=== PATIENT | female | born 2000 | race Caucasian/White ===

== ENCOUNTER → 2020-06-10 13:48 | Outpatient (CLI) | payer OTHER, SELFPAY ==
[2020-06-10 14:02] LABS: Chloride 104 mmol/L (98-107); Potassium 4.2 mmoL/L (3.5-5.1); Sodium 140 mmol/L (136-145)
[2020-06-10 14:04] LABS: Alanine Aminotransferase 18 U/L (12-78); Aspartate Amino Transferase 30 U/L (14-36); Blood Urea Nitrogen 17 mg/dl (7-17); Estimated Glomerular Filt Rate 78 ml/min (>60); GFR (African American) 95 ML/MIN (>60)
[2020-06-10 14:05] LABS: Albumin Level 4.9 g/dl (3.5-5.0); Albumin/Globulin Ratio 1.5 (1.1-1.8); Alkaline Phosphatase 65 U/L (38-126); Anion Gap 15.2 mEq/L (5-15); Bilirubin,Total 0.6 mg/dl (0.2-1.3); Calcium 10.2 mg/dl (8.4-10.2); Carbon Dioxide 25 mmol/L (22.0-30.0); Cholesterol 227 mg/dl (140-200); Globulin 3.2 g/dL (1.3-3.2); Glucose 97 mg/dl (74-100); Total Protein,Serum 8.1 g/dl (6.3-8.2); Triglycerides 239 mg/dl (30-150); VLDL Cholesterol 48 mg/dL (0-40)
[2020-06-10 14:06] LABS: Chol/HDL Ratio 3.4 (1-3.5); HDL Cholesterol 67 mg/dl (40-60)
[2020-06-10 14:16] LABS: Direct LDL Cholesterol 107.64 mg/dL (100-129)
[2020-06-10 14:21] LABS: Free T4 (Free Thyroxine) 0.86 ng/dl (0.78-2.19)
[2020-06-10 14:25] LABS: Basophils # 0.1 K/mm3 (0-0.2); Basophils % 0.4 % (0.1-2.0); Eosinophils # 0.1 K/mm3 (0.0-0.4); Eosinophils % 0.4 % (0.1-12.0); Hematocrit 41.9 % (37.0-47.0); Hemoglobin 14.8 g/dL (12.2-16.2); Lymphocytes # 3.1 K/mm3 (0.7-4.5); Lymphocytes % 25.1 % (10-50); Mean Corpuscular HGB Conc 35.2 g/dL (31.8-35.4); Mean Corpuscular Hemoglobin 31.8 pg (27.0-31.2); Mean Corpuscular Volume 90.5 fl (81-99); Monocytes # 0.5 K/mm3 (0.1-1.0); Monocytes % 3.9 % (1.7-9.3); Neutrophils # 8.6 K/mm3 (1.8-7.8); Neutrophils % 70.2 % (37.0-80.0); Platelet Count 349 K/mm3 (142-424); Red Blood Count 4.63 M/mm3 (4.20-5.40); Red Cell Distribution Width 13.3 % (11.5-17.5); White Blood Count 12.2 K/mm3 (4.8-10.8)
[2020-06-10 14:36] LABS: Thyroid Stimulating Hormone 2.19 uIU/mL (0.465-4.68)
[2020-06-10 15:14] LABS: 25-OH Vitamin D, Total 54.8 ng/mL (30-100)
[2020-06-10 15:50] LABS: Vitamin B12 367 pg/mL (239-931)
== END ==
PROVIDERS: Visit Provider Emergency Medicine
DX: R53.83 Other fatigue (principal); E55.9 Vitamin D deficiency, unspecified
CPT/HCPCS: 80053; 80061; 82306; 82607; 84439; 84443; 85025

== ENCOUNTER 2020-09-28 13:29 | Emergency (ER) | payer OTHER, SELFPAY ==
[2020-09-28 14:56] VITALS: BP 121/77; PULSE 83; RESP 16; TEMP 36.4; O2SAT 100; BMI 29.2
--- NOTE | 2020-09-28 15:15 | HMH.EDUTC ---
[place] Disposition Clinical Impression: Viral syndrome, Exposure to COVID-19 virus Disposition: Home, Self-Care Condition on Discharge: Good Instructions: Preventing the Spread of Coronavirus Discharge Instructions Additional Instructions: Drink plenty of fluids. Take tylenol for pain or fever. Return if you begin to have difficulty breathing. Follow up with your regular doctor. GO TO THE ER FOR ANY WORSENING SYMPTOMS Prescriptions: Promethazine HCl [Phenergan 25mg tab] 25 mg PO Q6H PRN #20 tab PRN Reason: Nausea And Vomiting Transmission Status: Received by [id number] Referrals: Maxi Davalos MD [Primary Care Provider] - Forms: Work/School Release Time of Disposition: 15:44 Medical Decision Making - Medical Records Medical records reviewed: No: I reviewed the patient's medical records. - Mark Inquiry Pt receiving controlled substance: No Vital Signs: 09/28/20 14:56 09/28/20 15:27 09/28/20 15:45 Temperature 97.6 F 97.9 F 98.5 F Temperature Source Tympanic Oral Pulse Rate 81 70 Pulse Rate [Right] 83 Respiratory Rate 16 16 14 Blood Pressure 126/82 122/69 Blood Pressure [Right Arm] 121/77 Blood Pressure Mean [Right Arm] 91 Blood Pressure Source Automatic Cuff Blood Pressure Source [Right Arm] Automatic Cuff Blood Pressure Position Sitting Blood Pressure Position [Right Arm] Sitting 02 Sat by Pulse Oximetry 100 Oxygen Delivery Method Room Air [place] HPI - General Stated complaint: covid symtoms Time Seen by Provider: 09/28/20 15:15 Mode of Arrival: Ambulatory Source of Information: Patient Limitations: No Limitations Description of Symptoms (Recalled from Triage Doc. by RN): pt states she has had a migraine, cough, fatigue, puking, stomach cramps. pt is 7-8weeks . HEENT Symptoms (Recalled from RN notes): Yes (migraine) Resp Symptoms (Recalled from RN notes): Yes (cough) Skin Symptoms (Recalled from RN notes): No MS Symptoms (Recalled from RN notes): No Functional Status (Recalled from RN notes): na - History of Present Illness Provider Complaint: She states that for the past 3 days she has been having a cough, sinus drainage, and gi upset. She is 8 weeks . She has an appt with her club former on Monday (2 days from now). - Related Data Previous Rx's Medication Instructions Recorded quetiapine 50 mg tablet 50 mg PO QHS #30 tab 04/28/20 lisinopril 5 mg tablet 5 mg PO DAILY #90 tab 06/10/20 bupropion HCl 150 mg 24 hr tablet, 150 mg PO DAILY #30 tab 07/27/20 extended release pantoprazole 40 mg tablet,delayed 40 mg PO DAILY #90 tab 08/05/20 release Promethazine HCl [Phenergan 25mg 25 mg PO Q6H PRN #20 tab 09/28/20 tab] Allergies Allergy/AdvReac Type Severity Reaction Status Date / Time azithromycin [From ZITHROMAX] Allergy Mild Verified 09/28/20 14:21 - Worker's Comp Is this a Worker's Comp case?: No [facility] History - Hepatitis A Screen Drug use history?: No High risk sexual behaviors?: No History of sexually transmitted infection?: No Currently employed?: No Childcare worker?: No Do you have indoor plumbing?: Yes Do you have electricity?: Yes Attestation statement:: This patient has been screened for Hepatitis A risk factors. I have reviewed the patient's past medical history: Yes Medical History: Reports:: Anxiety, Gastroesophageal Reflux Disease(GERD) Comment: HEMORROIDS Other Surgeries: Yes: No Previous Surgery, EGD Amputation: No Fractures: No - Social History Smoking Status: Never smoker Alcohol Intake: never Alcohol Intake Frequency:: a few times a week Substance Use Type: denies use, marijuana Occupational Status: employed Housing: house Household Members: family - Psychiatric History Pschychiatric History:: Reports:: Anxiety Family Hx:: No significant family history ROS Obtained: Yes All systems reviewed & no additional complaints - Constitutional Constitutional: Report
[2020-09-28 15:27] VITALS: BP 126/82; PULSE 81; RESP 16; TEMP 36.6
[2020-09-28 15:45] VITALS: BP 122/69; PULSE 70; RESP 14; TEMP 36.9
== END 2020-09-28 15:48 | disposition home or self-care (01) ==
PROVIDERS: Emergency Provider Nurse Practitioner Family; PCP Emergency Medicine
DX: Z20.822 Contact with and (suspected) exposure to COVID-19 (principal); B34.9 Viral infection, unspecified; F41.9 Anxiety disorder, unspecified; Z3A.08 8 weeks gestation of pregnancy; K21.9 Gastro-esophageal reflux disease without esophagitis
CPT/HCPCS: 99202; G0463; U0003

== ENCOUNTER 2020-11-19 09:14 | Emergency (ER) | payer OTHER, SELFPAY ==
[2020-11-19 09:16] VITALS: BP 142/80; PULSE 86; RESP 16; TEMP 36.8; O2SAT 98; BMI 28.5
[2020-11-19 09:28] LABS: Apearance,Urine Clear (Clear); Color,Urine Yellow (Yellow); PH,Urine 5.5 (5.0-8.5)
[2020-11-19 09:29] LABS: Bilirubin,Urine Negative (Negative); Blood, Urine 4+ (Negative); Glucose,Urine (UA) Negative (Negative); Ketones,Urine Negative (Negative); Protein,Urine Negative (Negative); UTC Leukocyte Esterase,Urine 1+ (Negative); UTC Nitrate,Urine Positive (Negative); Urobilinogen,Urine 0.2 EU/dl (0.2)
--- NOTE | 2020-11-19 09:41 | HMH.EDUTC ---
[facility] [place] Clinical Impression: UTI (urinary tract infection) Qualifiers: Urinary tract infection type: site unspecified Hematuria presence: with hematuria Qualified Code(s): N39.0 - Urinary tract infection, site not specified Disposition: Home, Self-Care Condition on Discharge: Good Instructions: Urinary Tract Infection, DI for Urinary Tract Infection (UTI), Phenazopyridine Additional Instructions: Drink plenty of fluids. Take tylenol or ibuprofen for pain or fever. Take the medications as directed. Follow up with your regular doctor. GO TO THE ER FOR ANY WORSENING SYMPTOMS The pyridium will make your urine turn orange, this is an expected side effect. It will stain your clothes if it comes into contact with them. Prescriptions: Sulfamethoxazole/Trimethoprim [Bactrim DS tablet] 1 each PO BID 7 Days #14 tab Transmission Status: Received by [facility] Phenazopyridine HCl [Pyridium 200mg Tablet] 200 pow PO TID #6 tab Transmission Status: Received by [facility] Referrals: Maxi Davalos MD [Primary Care Provider] - Forms: Work/School Release Time of Disposition: 09:42 Medical Decision Making - Medical Records Medical records reviewed: No: I reviewed the patient's medical records. - Mark Inquiry Pt receiving controlled substance: No Vital Signs: 11/19/20 09:16 11/19/20 09:44 Temperature 98.3 F 98 F Temperature Source Oral Oral Pulse Rate 65 Pulse Rate [Right] 86 Respiratory Rate 16 16 Blood Pressure 132/70 Blood Pressure [Right Arm] 142/80 H Blood Pressure Mean [Right Arm] 100 Blood Pressure Source Automatic Cuff Blood Pressure Source [Right Arm] Automatic Cuff Blood Pressure Position Sitting Blood Pressure Position [Right Arm] Sitting 02 Sat by Pulse Oximetry 98 Oxygen Delivery Method Room Air Room Air - Lab Data Lab results reviewed: Yes: I reviewed the patient's lab results. Lab Results 11/19/20 09:27: Urine Color Yellow, Urine Appearance Clear, Urine pH 5.5, Ur Specific [place] 1.020, Urine Protein Negative, Urine Glucose (UA) Negative, Urine Ketones Negative, Urine Blood 4+, Urine Nitrate Positive A, Urine Bilirubin Negative, Urine Urobilinogen 0.2, Ur Leukocyte Esterase 1+ A Orders (Tests/Meds): ORDERS Category Date Time Status Urine Culture Stat Micro 11/19/20 09:30 Received [facility] [place] - General Stated complaint: possible uti Time Seen by Provider: 11/19/20 09:20 Mode of Arrival: Ambulatory Source of Information: Patient Limitations: No Limitations Description of Symptoms (Recalled from Triage Doc. by RN): pt c/o UTI symptoms, frequency, and some pain HEENT Symptoms (Recalled from RN notes): No Resp Symptoms (Recalled from RN notes): No Skin Symptoms (Recalled from RN notes): No MS Symptoms (Recalled from RN notes): No Functional Status (Recalled from RN notes): na - History of Present Illness Provider Complaint: She c/o low back pain, urinary frequency, and dysuria for the past 2 days. - Related Data Previous Rx's Medication Instructions Recorded quetiapine 50 mg tablet 50 mg PO QHS #30 tab 04/28/20 bupropion HCl 150 mg 24 hr tablet, 150 mg PO DAILY #30 tab 11/05/20 extended release lisinopril 5 mg tablet See Rx Instructions .ROUTE 11/06/20 .COMPLEX #90 tab pantoprazole 40 mg tablet,delayed See Rx Instructions .ROUTE 11/06/20 release .COMPLEX #90 tab hydrocortisone 2.5 % topical cream 1 applic [place] BID #30 g 11/13/20 with perineal applicator Phenazopyridine HCl [Pyridium 200 pow PO TID #6 tab 11/19/20 200mg Tablet] Sulfamethoxazole/Trimethoprim 1 each PO BID 7 Days #14 tab 11/19/20 [Bactrim DS tablet] Allergies Allergy/AdvReac Type Severity Reaction Status Date / Time azithromycin [From ZITHROMAX] Allergy Mild Verified 11/13/20 14:12 - Worker's Comp Is this a Worker's Comp case?: No [facility] History - Hepatitis A Screen Drug use history?: No High risk sexual behaviors
[2020-11-19 09:44] VITALS: BP 132/70; PULSE 65; RESP 16; TEMP 36.6; O2SAT 98
== END 2020-11-19 09:45 | disposition home or self-care (01) ==
PROVIDERS: Emergency Provider Nurse Practitioner Family; PCP Emergency Medicine
DX: N30.00 Acute cystitis without hematuria (principal); K21.9 Gastro-esophageal reflux disease without esophagitis; F41.9 Anxiety disorder, unspecified; Z79.899 Other long term (current) drug therapy
CPT/HCPCS: 81003; 87086; 87088; 87186; 99202; G0463

== ENCOUNTER 2021-02-08 09:06 | Emergency (ER) | payer OTHER, SELFPAY ==
[2021-02-08 09:10] VITALS: BP 147/93; PULSE 89; RESP 19; TEMP 36.8; O2SAT 100; BMI 26.2
--- NOTE | 2021-02-08 10:06 | HMH.EDUTC ---
[facility] [place] Dis[place] Clinical Impression: Vertigo Disposition: Home, Self-Care Condition on Discharge: Good Instructions: Vertigo, DI for Vertigo, Meclizine Additional Instructions: Take medication as prescribed Follow up with your Family Doctor in the next 48 hours as advised for further evaluation Return if needed Straight to ER if any life threatening symptoms or loss of consciousness Prescriptions: Meclizine HCl [Antivert 12.5mg tablet] 12.5 mg PO TID PRN #15 tab PRN Reason: Dizziness Transmission Status: Received by [id number] Fluticasone Propionate [Flonase 50mcg nasal spray 16gm] 1 spr NS DAILY #1 bottle Transmission Status: Received by [id number] Referrals: Maxi Davalos MD [Primary Care Provider] - As needed Forms: Work/School Release Time of Disposition: 10:12 Medical Decision Making - Mark Inquiry Pt receiving controlled substance: No Mark was queried for this patient: No Vital Signs: 02/08/21 09:10 02/08/21 10:18 Temperature 98.2 F 98.2 F Temperature Source Oral Pulse Rate 89 Pulse Rate [Right Brachial] 89 Respiratory Rate 19 19 Blood Pressure 147/93 H Blood Pressure [Right Arm] 147/93 H Blood Pressure Mean [Right Arm] 111 Blood Pressure Source [Right Arm] Automatic Cuff Blood Pressure Position [Right Arm] Sitting 02 Sat by Pulse Oximetry 100 Oxygen Delivery Method Room Air - Lab Data Lab Results 02/08/21 10:18: [facility] Negative Medical Decision Narrative: Discussed with patient and recommended transfer to the ED for further work up and evaluation due to fainting yesterday and patient refused states that she will start medication for dizziness and if no improvement will follow up with her Family Doctor on Mon or return to ED if symptoms continue or do not improve Patient aware of risks and still declined transfer State that she feels fine right now [facility] [place] HPI - General Stated complaint: dizzines, fainted 02/07 Time Seen by Provider: 02/08/21 10:06 Mode of Arrival: Ambulatory Source of Information: Patient Limitations: No Limitations Description of Symptoms (Recalled from Triage Doc. by RN): PATIENT C/O DIZZINESS SINCE LAST MONDAY AND STATES SHE FAINTED ONCE. HEENT Symptoms (Recalled from RN notes): Yes Resp Symptoms (Recalled from RN notes): No Skin Symptoms (Recalled from RN notes): No MS Symptoms (Recalled from RN notes): No Functional Status (Recalled from RN notes): WNL - History of Present Illness Provider Complaint: Patient states that about a week and half ago she had some ringing in her right ear and feeling of fullness State that for the last week she has been having dizzy spells on and off State that she has had them multiple times in the past and yesterday she thinks she may have fainted States that she has done that in the past also State that she has continued to have feeling of fullness in her ears and dizziness on and off when she moves or turns States that she feels like the room is spinning around her States that she seen PCP on Mon and they changed her blood pressure medication but she had been having dizziness prior to that - Related Data Home Medications Medication Instructions Recorded Confirmed Losartan Potassium [Cozaar 25mg 25 mg PO DAILY 02/08/21 02/08/21 Tablets] Pantoprazole Sodium 40 mg PO DAILY 02/08/21 02/08/21 Previous Rx's Medication Instructions Recorded bupropion HCl 150 mg 24 hr tablet, 150 mg PO DAILY #90 tab 02/03/21 extended release Fluticasone Propionate [Flonase 1 spr NS DAILY #1 bottle 02/08/21 50mcg nasal spray 16gm] Meclizine HCl [Antivert 12.5mg 12.5 mg PO TID PRN #15 tab 02/08/21 tablet] Allergies Allergy/AdvReac Type Severity Reaction Status Date / Time azithromycin [From ZITHROMAX] Allergy Mild Verified 02/03/21 13:03 lisinopril AdvReac Mild cough Verified 02/03/21 13:28 - Worker's Comp Is this a Worker's Comp case?: No H History - H
[2021-02-08 10:18] VITALS: BP 147/93; PULSE 89; RESP 19; TEMP 36.8; O2SAT 100
[2021-02-08 10:37] LABS: UTC Pregnancy Test, Urine Negative (Negative)
== END 2021-02-08 10:36 | disposition home or self-care (01) ==
PROVIDERS: Emergency Provider Nurse Practitioner; PCP Emergency Medicine
DX: R42 Dizziness and giddiness (principal); K21.9 Gastro-esophageal reflux disease without esophagitis; F41.8 Other specified anxiety disorders; I10 Essential (primary) hypertension; F17.290 Nicotine dependence, other tobacco product, uncomplicated; Z79.899 Other long term (current) drug therapy
CPT/HCPCS: 81025; 99202; G0463

== ENCOUNTER 2021-02-27 13:51 | Emergency (ER) | payer OTHER, SELFPAY ==
[2021-02-27 14:00] VITALS: BP 132/91; PULSE 88; RESP 21; TEMP 36.6; O2SAT 99; BMI 28.3
--- NOTE | 2021-02-27 14:29 | HMH.EDUTC ---
[facility] [place] Clinical Impression: UTI (urinary tract infection) Qualifiers: Urinary tract infection type: acute cystitis Hematuria presence: with hematuria Qualified Code(s): N30.01 - Acute cystitis with hematuria Disposition: Home, Self-Care Condition on Discharge: Good Instructions: Urinary Tract Infection Additional Instructions: Increase fluids, water and not soda or tea. Can drink cranberry juice or cranberry extract. White front to back Wear cotton underwear Empty bladder after intercourse Start antibiotics immediately and make sure you take the full course although you may start to see improvement over the next 48 hours. You can eat yogurt or take probiotics to decrease diarrhea or yeast infection caused by the antibiotic Be sure to follow-up anytime for new or worsening symptoms in 48 hours for wound urine culture results be sure to let you PCP no recent urine for culture so they can request records and ensure that you have appropriate antibiotic if you are not getting better or getting worse. If symptoms worsen or do not improve return or be seen in the ER. Follow-up with primary care this week. Prescriptions: cephALEXin [Cephalexin 500mg Tab] 500 mg PO BID 7 Days #14 tab Transmission Status: Received by [id number] Referrals: Maxi Davalos MD [Primary Care Provider] - Time of Disposition: 14:48 Medical Decision Making - Mark Inquiry Pt receiving controlled substance: No Vital Signs: 02/27/21 14:00 Temperature 97.9 F Temperature Source Oral Pulse Rate [Right Brachial] 88 Respiratory Rate 21 Blood Pressure [Right Arm] 132/91 H Blood Pressure Mean [Right Arm] 104 Blood Pressure Source [Right Arm] Manual Cuff/ Palpation Blood Pressure Position [Right Arm] Sitting 02 Sat by Pulse Oximetry 99 Oxygen Delivery Method Room Air - Lab Data Lab Results 02/27/21 14:02: Urine HCG, Qual Negative 02/27/21 14:06: Urine Color Yellow, Urine Appearance Clear, Urine pH 5.5, Ur Specific [place] 1.020, Urine Protein Negative, Urine Glucose (UA) Negative, Urine Ketones Negative, Urine Blood 3+, Urine Nitrate Negative, Urine Bilirubin Negative, Urine Urobilinogen 0.2, Ur Leukocyte Esterase Trace Orders (Tests/Meds): ORDERS Category Date Time Status Urine Culture Stat Micro 02/27/21 14:04 Received [facility] [place] - General Chief complaint: Urgent Treatment Center Stated complaint: urinary problems Time Seen by Provider: 02/27/21 14:29 Mode of Arrival: Ambulatory Source of Information: Patient Limitations: No Limitations Description of Symptoms (Recalled from Triage Doc. by RN): PATIENT C/O POSSIBLE UTI HEENT Symptoms (Recalled from RN notes): No Resp Symptoms (Recalled from RN notes): No Skin Symptoms (Recalled from RN notes): No MS Symptoms (Recalled from RN notes): No Functional Status (Recalled from RN notes): WNL - History of Present Illness Provider Complaint: 20 yr old female presnets for burning,freq,urgency and pain with urination for 3 days. - Related Data Home Medications Medication Instructions Recorded Confirmed Losartan Potassium [Cozaar 25mg 25 mg PO DAILY 02/08/21 02/08/21 Tablets] Pantoprazole Sodium 40 mg PO DAILY 02/08/21 02/08/21 Previous Rx's Medication Instructions Recorded bupropion HCl 150 mg 24 hr tablet, 150 mg PO DAILY #90 tab 02/03/21 extended release Fluticasone Propionate [Flonase 1 spr NS DAILY #1 bottle 02/08/21 50mcg nasal spray 16gm] Meclizine HCl [Antivert 12.5mg 12.5 mg PO TID PRN #15 tab 02/08/21 tablet] cephALEXin [Cephalexin 500mg Tab] 500 mg PO BID 7 Days #14 tab 02/27/21 Allergies Allergy/AdvReac Type Severity Reaction Status Date / Time azithromycin [From ZITHROMAX] Allergy Mild Verified 02/03/21 13:03 lisinopril AdvReac Mild cough Verified 02/03/21 13:28 - Worker's Comp Is this a Worker's Comp case?: No [facility] History - Hepatitis A Screen Drug use history?: No High risk sexual behaviors?: No Histor
[2021-02-27 14:41] LABS: Urine Pregnancy, HCG Qual. Negative (Negative)
[2021-02-27 14:44] LABS: Apearance,Urine Clear (Clear); Color,Urine Yellow (Yellow); PH,Urine 5.5 (5.0-8.5)
[2021-02-27 14:45] LABS: Bilirubin,Urine Negative (Negative); Blood, Urine 3+ (Negative); Glucose,Urine (UA) Negative (Negative); Ketones,Urine Negative (Negative); Protein,Urine Negative (Negative); UTC Leukocyte Esterase,Urine Trace (Negative); UTC Nitrate,Urine Negative (Negative); Urobilinogen,Urine 0.2 EU/dl (0.2)
[2021-02-27 14:50] VITALS: BP 132/91; PULSE 88; RESP 21; TEMP 36.6; O2SAT 99
== END 2021-02-27 14:53 | disposition home or self-care (01) ==
PROVIDERS: Emergency Provider Nurse Practitioner Family; PCP Emergency Medicine
DX: N30.01 Acute cystitis with hematuria (principal); F41.8 Other specified anxiety disorders; I10 Essential (primary) hypertension
CPT/HCPCS: 81003; 81025; 87086; 87088; 87186; 99202; G0463

== ENCOUNTER 2021-12-28 22:06 | Emergency (ER) | payer OTHER, SELFPAY ==
[2021-12-29 00:12] VITALS: BP 00/00; PULSE 0; RESP 0; TEMP -17.7; TEMP 0
== END 2021-12-29 00:14 | disposition left against medical advice (07) ==
PROVIDERS: Emergency Provider Emergency Medicine; PCP Emergency Medicine
DX: Z53.21 Procedure and treatment not carried out due to patient leaving prior to being seen by health care provider (principal)
CPT/HCPCS: 99211

== ENCOUNTER 2022-03-30 10:04 | Emergency (ER) | payer OTHER, SELFPAY ==
[2022-03-30 11:10] VITALS: BP 141/90; PULSE 77; RESP 19; TEMP 36.7; O2SAT 99; BMI 32.3
--- NOTE | 2022-03-30 11:36 | HMH.EDUTC ---
[facility] [place] Impression: Sinusitis Qualifiers: Sinusitis location: unspecified location Chronicity: unspecified Qualified Code(s): J32.9 - Chronic sinusitis, unspecified Disposition: Home, Self-Care Condition on Discharge: Good Instructions: Sinusitis, DI for Sinusitis, DI for COVID-19 (Suspected or Confirmed ), Preventing the Spread of Coronavirus Discharge Instructions Additional Instructions: *Monitor Temp, Over the counter Motrin or Tylenol as directed/as needed Tylenol every 4 hours and Motrin every 6 hours (as long as your family doctor has told you that you can take it) for fever or pain. and straight to ER if unable to lower temp less than 101.0 after medication given *Warm salt water gargles may help to soothe the throat *Throat Lozenges *Warm fluids like tea with honey may help to soothe the throat *Sleep elevated *Humidifier/Vaporizer Follow up IMMEDIATELY for new or worsening symptoms or no Noticeable improvement over the next 48-72 hours. 911 for difficulty breathing or swallowing You were tested for today for COVID19 your test result should be back in the next 24-48 hours, you may check your result on the [facility] Portal Make sure to take your Vitamins Vit. C Vit D and Zinc if you can take them Prescriptions: Amoxicillin/Potassium Clav [Amox-Clav 875-125 mg Tablet] 1 tab PO BID #14 tab Transmission Status: [facility] methylPREDNISolone [Medrol 4mg tab] 4 mg PO DIRECTED #21 tab Transmission Status: Pending to [facility] Referrals: Maxi Davalos MD [Primary Care Provider] - As needed Forms: Work/School Release Time of Disposition: 11:46 Medical Decision Making - Mark Inquiry Pt receiving controlled substance: No Mark was queried for this patient: No Vital Signs: 03/30/22 11:10 Temperature 98.0 F Temperature Source Oral Pulse Rate [Right Brachial] 77 Respiratory Rate 19 Blood Pressure [Right Arm] 141/90 H Blood Pressure Mean [Right Arm] 107 Blood Pressure Source [Right Arm] Automatic Cuff Blood Pressure Position [Right Arm] Sitting 02 Sat by Pulse Oximetry 99 Oxygen Delivery Method Room Air Orders (Tests/Meds): ORDERS Category Date Time Status Covid-19 Nasal PCR ([facility]) Routine Lab 03/30/22 11:10 Received Medical Decision Narrative: Patient denies states just got off period yesterday [facility] [place] HPI - General Stated complaint: cough, congestion Time Seen by Provider: 03/30/22 11:36 Mode of Arrival: Ambulatory Source of Information: Patient Limitations: No Limitations Description of Symptoms (Recalled from Triage Doc. by RN): PATIENT C/O COUGH, CONGESTION, SINUS PRESSURE AND BODY ACHES X 4 DAYS HEENT Symptoms (Recalled from RN notes): Yes Resp Symptoms (Recalled from RN notes): Yes Skin Symptoms (Recalled from RN notes): No MS Symptoms (Recalled from RN notes): No Functional Status (Recalled from RN notes): WNL - History of Present Illness Provider Complaint: Patient states that she hasnt felt well for about a week States that for the last 4 days she has been having sinus pain and pressure pressure like feeling behind her eyes, body aches and headache Denies known exposure to COVID - Related Data Home Medications Medication Instructions Recorded Confirmed Losartan Potassium [Cozaar 25mg 25 mg PO DAILY 02/08/21 02/23/22 Tablets] Pantoprazole Sodium 40 mg PO DAILY 02/08/21 02/23/22 Previous Rx's Medication Instructions Recorded bupropion HCl 150 mg 24 hr tablet, 150 mg PO DAILY #90 tab 02/03/21 extended release Fluticasone Propionate [Flonase 1 spr NS DAILY #1 bottle 02/08/21 50mcg nasal spray 16gm] Meclizine HCl [Antivert 12.5mg 12.5 mg PO TID PRN #15 tab 02/08/21 tablet] methylprednisolone 4 mg tablets in See Rx Instructions PO PER PKG DIR 02/23/22 a dose pack #21 tab phentermine 37.5 mg tablet 37.5 mg PO DAILY #30 tab 02/23/22 Amoxicillin/Potassium Clav 1 tab PO BID #14 tab
[2022-03-30 11:51] VITALS: BP 141/90; PULSE 77; RESP 19; TEMP 36.7; O2SAT 99
== END 2022-03-30 11:55 | disposition home or self-care (01) ==
PROVIDERS: Emergency Provider Nurse Practitioner; PCP Emergency Medicine
DX: J32.9 Chronic sinusitis, unspecified (principal)
CPT/HCPCS: 99212; C9803; G0463; U0003; U0005

== ENCOUNTER 2022-11-07 10:36 | Outpatient (RCR) | payer OTHER, SELFPAY ==
--- NOTE | 2022-11-07 11:23 | HMH.OTOPEV ---
OT Inpatient Evaluation Rehab OT Outpatient Eval Start: 11/07/22 11:05 Freq: Status: Active Protocol: Document 11/07/22 11:05 PABLITO (Rec: 11/07/22 11:20 PABLITO [id number]) E-signed By Bekah Wagner, OT Outpatient Therapy Subjective History Subjective History Pt is a 22-year old female who reports to OT today for initial evaluation due to pain and weakness in R wrist. Pt reports that she has been experiencing pain and weakness in the R wrist ~ few months now. She reports that she has often drops objects due to weakness in R wrist. 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 She reports that she is writes with her L hand, but is R hand dominant for every other task . Pt reports that her mother and grandmother have experienced CTS in the past. Pt reports that she is a mother of two, and complains of pain and weakness while holding the baby without the support from her arms. Pt would benefit from skilled OT to address pain and weakness in R wrist that are inhibiting overall occupational performance in daily tasks. Chief Complaint Pain Symptom Type Ache,Sharp Symptoms Relieved By Nothing Prior Functional Limitations None Current Functional Limitations Lifting Symptom Description Constant but Variable Level of pain today (0-10) 0 Pain scale - at its best (0-10) 0 Pain scale - at its worst (0-10) 9 Wrist/Hand Eval Wrist Range of Motion Right Wrist Limitations of Range of Motion Muscle Weakness,Pain Wrist Extension Active Range of Motion ( 68 degrees) Wrist Flexion Active Range of Motion ( 80 degrees) Wrist Radial Deviation Active Range of 32 Motion (degrees) Wrist Ulnar Deviation Active Range of 26 Motion (degrees) Wrist Manual Muscle Testing Right Wrist Extension Strength Grade 4- Good- Wrist Flexion Strength Grade
== END 2022-11-07 11:47 | disposition home or self-care (01) ==
LOC: OT 10:36
PROVIDERS: PCP Emergency Medicine; Visit Provider Student in an Organized Health Care Education/Training Program
DX: M25.531 Pain in right wrist (principal)
CPT/HCPCS: 97166

== ENCOUNTER → 2023-05-04 23:39 | Outpatient (CLI) | payer OTHER, SELFPAY ==
[2023-05-04 18:10] LABS: Adenovirus,PCR Not Detected (NotDetected); Bordetella Pertussis Not Detected (NotDetected); Chlamydophila Pneumoniae, PCR Not Detected (NotDetected); Coronavirus 19, PCR Not Detected (NotDetected); Coronavirus 229E Not Detected (NotDetected); Coronavirus NL63 Not Detected (NotDetected); Coronavirus OC43 Not Detected (NotDetected); Coronovirus HKU1,PCR Not Detected (NotDetected); Human Metapneumovirus Not Detected (NotDetected); Influenza A, PCR Not Detected (NotDetected); Influenza AH1, 2009 Not Detected (NotDetected); Influenza AH1, PCR Not Detected (NotDetected); Influenza AH3,PCR Not Detected (NotDetected); Influenza B, PCR Not Detected (NotDetected); Mycoplasma Pneumoniae, PCR Not Detected (NotDetected); Parainfluenza 1, PCR Not Detected (NotDetected); Parainfluenza 3, PCR Not Detected (NotDetected); Parainfluenza 4, PCR Not Detected (NotDetected); Respiratory Syncytial Virus Not Detected (NotDetected)
[2023-05-05 05:59] LABS: Parainfluenza 2, PCR Detected (NotDetected); Rhinovirus/Enterovirus Detected (NotDetected)
== END ==
PROVIDERS: PCP Emergency Medicine; Visit Provider Student in an Organized Health Care Education/Training Program
DX: J02.9 Acute pharyngitis, unspecified (principal); J10.1 Influenza due to other identified influenza virus with other respiratory manifestations; B34.1 Enterovirus infection, unspecified
CPT/HCPCS: 87070; 87581; 87632; 87798

== ENCOUNTER → 2023-05-16 23:20 | Outpatient (CLI) | payer OTHER, SELFPAY ==
[2023-05-16 18:10] LABS: Basophils % 0.4 % (0.1-2.0); Eosinophils # 0.1 K/mm3 (0.0-0.4); Eosinophils % 1.7 % (0.1-12.0); Hemoglobin 13.7 g/dL (12.2-16.2); Lymphocytes # 1.9 K/mm3 (0.7-4.5); Lymphocytes % 28.2 % (10-50); Mean Corpuscular HGB Conc 31.9 g/dL (31.8-35.4); Mean Corpuscular Hemoglobin 29.3 pg (27.0-31.2); Mean Corpuscular Volume 91.8 fl (81-99); Mean Platelet Volume 9.7 fl (7.4-10.4); Monocytes # 0.5 K/mm3 (0.1-1.0); Monocytes % 7.8 % (1.7-9.3); Neutrophils # 4.2 K/mm3 (1.8-7.8); Neutrophils % 61.9 % (37.0-80.0); Platelet Count 336 K/mm3 (142-424); Red Blood Count 4.69 M/mm3 (4.20-5.40); Red Cell Distribution Width 13.1 % (11.5-17.5); White Blood Count 6.7 K/mm3 (4.8-10.8)
[2023-05-16 18:37] LABS: Alanine Aminotransferase 18 U/L (12-78); Albumin Level 4.1 g/dl (3.5-5.0); Albumin/Globulin Ratio 1.5 (1.1-1.8); Alkaline Phosphatase 50 U/L (38-126); Anion Gap 15.2 mEq/L (5-15); Aspartate Amino Transferase 28 U/L (14-36); Bilirubin,Total 0.4 mg/dl (0.2-1.3); Blood Urea Nitrogen 10 mg/dl (7-17); Calcium 8.8 mg/dl (8.4-10.2); Carbon Dioxide 22 mmol/L (22.0-30.0); Chloride 108 mmol/L (98-107); Estimated Glomerular Filt Rate 102 ml/min (>60); GFR (African American) 123 ML/MIN (>60); Globulin 2.7 g/dL (1.3-3.2); Glucose 94 mg/dl (74-100); Potassium 4.2 mmoL/L (3.5-5.1); Sodium 141 mmol/L (136-145); Total Protein,Serum 6.8 g/dl (6.3-8.2)
== END ==
LOC: LAB.DROPOF 23:21
PROVIDERS: PCP Emergency Medicine; Visit Provider Internal Medicine
DX: R10.9 Unspecified abdominal pain (principal)
CPT/HCPCS: 80053; 85025

== ENCOUNTER → 2023-05-17 08:07 | Outpatient (CLI) | payer OTHER, SELFPAY ==
[2023-05-17 08:19] LABS: Adenovirus F 40/41, stool Not Detected (NotDetected); Astrovirus Not Detected (NotDetected); Campylobacter Not Detected (NotDetected); Clostridium Difficile A/B, PCR Not Detected (NotDetected); Cryptosporidium Not Detected (NotDetected); Cyclospora Cayetanesis Not Detected (NotDetected); Entamoeba histolytica Not Detected (NotDetected); Enteroaggregative E coli Not Detected (NotDetected); Enteropathogenic E coli Not Detected (NotDetected); Enterotoxigenic E coli Not Detected (NotDetected); Giardia lamblia Not Detected (NotDetected); Plesimonas Shigalloides, PCR Not Detected (NotDetected); Rotavirus A Not Detected (NotDetected); Salmonella, PCR Not Detected (NotDetected); Sapovirus Not Detected (NotDetected); Shiga-like toxin E coli Not Detected (NotDetected); Shigella Enterovasive E coli Not Detected (NotDetected); Vibrio Cholerae Not Detected (NotDetected); Vibrio, PCR Not Detected (NotDetected); Yersinia Entercolitica, PCR Not Detected (NotDetected)
[2023-05-17 19:07] LABS: Norovirus Detected (NotDetected)
== END ==
PROVIDERS: PCP Emergency Medicine; Visit Provider Internal Medicine
DX: R19.7 Diarrhea, unspecified (principal); A08.11 Acute gastroenteropathy due to Norwalk agent
CPT/HCPCS: 87507

== ENCOUNTER → 2023-07-21 07:52 | Outpatient (CLI) | payer OTHER, SELFPAY ==
--- NOTE | 2023-07-21 07:52 | US_ITS ---
FINAL REPORT CLINICAL HISTORY: RUQ pain COMPARISON: None FINDINGS: Sonographic images of the right upper quadrant were obtained. The pancreas is partially obscured.The liver has an unremarkable appearance.The gallbladder appears normal without evidence of gallstones.There is no evidence of biliary ductal dilatation.The common duct measures 2.4 mm. Limited images of the right kidney are unremarkable. IMPRESSION: Unremarkable right upper quadrant ultrasound. Reviewed, Interpreted and Dictated by Anthony Borja MD Transcribed by Leti Shirley Authenticated and [facility]
== END ==
PROVIDERS: PCP Physician Assistant; Visit Provider Physician Assistant
DX: R10.11 Right upper quadrant pain (principal)
CPT/HCPCS: 76705

== ENCOUNTER 2023-08-25 08:32 | Outpatient (CLI) | payer OTHER, SELFPAY ==
[2023-08-25 09:51] LABS: Free T4 (Free Thyroxine) 0.76 ng/dl (0.78-2.19)
[2023-08-25 10:06] LABS: Thyroid Stimulating Hormone 2.22 uIU/mL (0.465-4.68)
[2023-08-26 14:35] LABS: Triiodothyronine (T3) Total 107 ng/dL (71-180)
[2023-08-29 12:12] LABS: Pancreatic Elastase, Fecal 166 (>200)
== END 2023-08-25 23:59 ==
LOC: LAB 08:34
PROVIDERS: PCP Physician Assistant; Visit Provider Nurse Practitioner Family
DX: R10.84 Generalized abdominal pain (principal); R11.2 Nausea with vomiting, unspecified; R14.0 Abdominal distension (gaseous); K30 Functional dyspepsia; K58.9 Irritable bowel syndrome, unspecified; K21.9 Gastro-esophageal reflux disease without esophagitis
CPT/HCPCS: 36415; 82656; 84439; 84443; 84480

== ENCOUNTER 2023-09-06 10:18 | Outpatient (CLI) | payer OTHER, SELFPAY ==
--- NOTE | 2023-09-06 10:18 | NM_ITS ---
FINAL REPORT CLINICAL HISTORY: RUQ pain 10:30AM 8.78 MCI TC CHOLETEC 1.5 MCG CCK NO PAIN WITH CCK COMPARISON: None FINDINGS: Sequential anterior projection images of the abdomen were obtained after the intravenous injection of 8.78 mCi technetium 99m Choletec. There is normal uptake of radiotracer by the liver. The gallbladder and bile ducts are visualized by 5 minutes. Bowel activity is noted by 15 minutes. After 1 hour, 1.5 ?g of CCK was injected intravenously for calculation of gallbladder ejection fraction. The gallbladder ejection fraction is 20%, which is abnormally low but nonspecific. IMPRESSION: No evidence of cystic duct or bile duct obstruction. Abnormally low but nonspecific gallbladder ejection fraction of 20%. Reviewed, Interpreted and Dictated by Kael Castillo III, MD Transcribed by Felicity Ziegler Authenticated and [facility]
[2023-09-06] MEDS: ISOTOPE CHOLETECH;1 DOSE (UP TO 15 MCI) IV (12:22)
[2023-09-06] MEDS: SODIUM CHLORIDE 0.9% 10ML SYR (RAD ONLY) 10 ML IV (12:22)
[2023-09-06] MEDS: SINCALIDE 1.5 MCG in 0.9 % SODIUM CHLORIDE 50 ML 100 MCG IV (12:22)
== END 2023-09-06 23:59 ==
LOC: RAD 10:18
PROVIDERS: PCP Physician Assistant; Visit Provider Physician Assistant
DX: R10.11 Right upper quadrant pain (principal)
CPT/HCPCS: 78227; A9537; J2805

== ENCOUNTER 2024-04-11 11:58 | Outpatient (CLI) | payer OTHER, SELFPAY ==
[2024-04-11 18:02] LABS: Coronavirus 19, PCR Not Detected (NotDetected); Influenza A, PCR Not Detected (NotDetected); Influenza B, PCR Not Detected (NotDetected)
== END 2024-04-11 23:59 | disposition home or self-care (01) ==
LOC: LAB.DROPOF 04-12 11:58
PROVIDERS: PCP Student in an Organized Health Care Education/Training Program; Visit Provider Student in an Organized Health Care Education/Training Program
DX: R50.9 Fever, unspecified (principal); R09.81 Nasal congestion
CPT/HCPCS: 87636

== ENCOUNTER 2024-07-31 10:46 | Outpatient (CLI) | payer OTHER, SELFPAY | END 2024-07-31 23:59 | disposition home or self-care (01) | LOC: LAB.DROPOF 08-01 08:50 | PROVIDERS: PCP Nurse Practitioner Family; Visit Provider Nurse Practitioner Family | DX: J02.0 Streptococcal pharyngitis (principal) | CPT/HCPCS: 87070 ==

== ENCOUNTER 2024-08-07 11:28 | Outpatient (CLI) | payer OTHER, SELFPAY ==
[2024-08-07 18:12] LABS: Adenovirus,PCR Not Detected (NotDetected); Bordetella Pertussis Not Detected (NotDetected); Chlamydophila Pneumoniae, PCR Not Detected (NotDetected); Coronavirus 229E Not Detected (NotDetected); Coronavirus NL63 Not Detected (NotDetected); Coronavirus OC43 Not Detected (NotDetected); Coronovirus HKU1,PCR Not Detected (NotDetected); Human Metapneumovirus Not Detected (NotDetected); Influenza A, PCR Not Detected (NotDetected); Influenza AH1, 2009 Not Detected (NotDetected); Influenza AH1, PCR Not Detected (NotDetected); Influenza AH3,PCR Not Detected (NotDetected); Influenza B, PCR Not Detected (NotDetected); Mycoplasma Pneumoniae, PCR Not Detected (NotDetected); Parainfluenza 1, PCR Not Detected (NotDetected); Parainfluenza 2, PCR Not Detected (NotDetected); Parainfluenza 3, PCR Not Detected (NotDetected); Parainfluenza 4, PCR Not Detected (NotDetected); Respiratory Syncytial Virus Not Detected (NotDetected); Rhinovirus/Enterovirus Not Detected (NotDetected)
[2024-08-07 22:56] LABS: Coronavirus 19, PCR Detected (NotDetected)
== END 2024-08-07 23:59 | disposition home or self-care (01) ==
LOC: LAB.DROPOF 08-08 10:11
PROVIDERS: PCP Family Medicine; Visit Provider Family Medicine
DX: R09.81 Nasal congestion (principal); U07.1 COVID-19
CPT/HCPCS: 87633

== ENCOUNTER 2025-06-26 07:41 | Emergency (ER) | payer OTHER, SELFPAY ==
[2025-06-26] VITALS (28 sets, daily range): BP systolic 111–154; BP diastolic 68–108; PULSE 56–108; RESP 20; TEMP 36.8–37; O2SAT 95–100; BMI 34.0
--- OUTSIDE RECORDS SUMMARY | 2025-06-26 07:50 | XMS_ITS | Continuity of Care Document ---
Author Organization [facility], [facility] Address [address] [place] [address] Assessment No assessment recorded. Plan of Treatment Reminders Order Date Submit Date Provider Last Modified By Organization Details Last Modified Time Details Appointments None recorded . Lab None recorded . Referral None recorded . Procedures None recorded . Surgeries None recorded . Imaging None recorded . Medication Orders Adipex-P 37.5 mg tablet 025 06/17/20 25 [id number], [address], [id number], 13:29:07 Patient TargetsNo targets recorded. Patient InstructionsNo instructions recorded. Reason for Referral None Reported. Problems Name Problem SNOMED Code Status Onset Date Resolution Date Notes Provider Name and Address Organization Details Recorded Time Gastroesoph ageal reflux disease without esophagitis 824929774 Active 2024 GONZALEZ Romero [address] [place] [address], [id number] 8, [employer] 13:40:34 Anxiety 39985294 Active 2024 GONZALEZ Romero [address] [place] [address], [id number] 8, [employer] 14:59:04 Obese class II 9033280890226 05 Active 2024 GONZALEZ Romero [address] [place] [address], [phone] 8, [employer] 10:43:27 Problem Notes None recorded. Procedures Surgical History Date Name Laterality Status Provider Name and Address Organization Details Recorded Time 5 Tubal Ligation completed [employer] 12/20/2024 13:12:45 4 Date of Last Pap Smear completed [employer] 12/20/2024 13:12:44 Imaging Results None recorded. Procedure Notes None recorded. Medical Equipment None Reported. Allergies Allergen ID Allergen Name Allergen Category Reaction Reaction Severity Criticality Documentation Date Start Date Code Code System Note Provider Name and Address Organization Details Recorded Time 18079 Zithromax medicatio n itching nausea rash vomiting Not available Not available Not available Not available Not available 12/20/20242015 [address] [facility] [employer] 5 13:12:43 Medications Name Sig Start Date Stop Date Status Note LastModified by Organization Details LastModified Time amoxicillin 500 mg capsule TAKE 1 CAPSULE BY MOUTH TWICE DAILY FOR 10 DAYS 12/05 completed Not Available Not Available Not Available acetaminoph en 325 mg tablet TAKE 2 TABLETS BY MOUTH EVERY 6 HOURS NEEDED FOR MILD PAIN ON A PAIN SCALE OF 1-3 12/05 completed Not Available Not Available Not Available ibuprofen 800 mg tablet TAKE 1 TABLET BY MOUTH ONCE EVERY 8 HOURS DO NOT EXCEED 3 TABLETS A DAY 12/05 completed Not Available Not Available Not Available Adipex-P 37.5 mg tablet Take 1 tablet every day by oral route for 30 days. 2024 active Not Available Not Available Not Avai lable ondansetron HCl 4 mg tablet TAKE 1 TABLET BY MOUTH EVERY 6 HOURS NEEDED FOR NAUSEA OR VOMITING 12/05 completed Not Available Not Available Not Available pantoprazol e 40 mg tablet,teddy yed release TAKE 1 TABLET BY MOUTH EVERY DAY active Not Available Not Available No t Available docusate sodium 100 mg capsule TAKE 2 CAPSULES BY MOUTH EVERY 12 HOURS NEEDED FOR CONSTIPAT ION 12/05 completed Not Available Not Available Not Available ibuprofen 600 mg tablet TAKE 1 TABLET BY MOUTH EVERY 6 HOURS NEEDED FOR MILD PAIN ON A PAIN SCALE OF 1-3 12/05 completed Not Available Not Available Not Available ondansetron 4 mg disintegrat ing tablet DISSOLVE 1 TABLET ON THE TONGUE EVERY 4 TO 6 HOURS 12/05 completed Not Available Not Available Not Available sertraline 50 mg tablet TAKE 1 TABLET BY MOUTH EVERY DAY active Not Available Not Available No t Available oxycodone 5 mg tablet TAKE 1 TABLET BY MOUTH EVERY 6 HOURS NEEDED FOR MODERATE PAIN 12/05 completed Not Available Not Available Not Available lidocaine 2 % mucosal jelly in applicator APPLY 1 APPLICATI ON TOPICALLY TO AFFECTED AREA NEEDED FOR MILD PAIN 12/05 completed Not Available Not Available Not Available 28 mg iron-800 mcg tablet TAKE 1 TABLET BY MOUTH 1 TIME EACH DAY active Not Available Not Available No t Available Creon 36,000 unit-114,00 0 unit-180,00 0 unit capsule,del ayed release TAKE 1 CAPSULE BY MOUTH THREE TIMES DAILY WITH MEALS active Not Available Not Available No t Available BinaxNOW COVID-19 Ag Self Test kit TEST DIRECTED TODAY 05/09 completed Not Available Not Available Not Available Vitals Date Recorded Body height Body mass index (BMI) Body weight Oxygen saturation Oxygen saturation in Arterial blood by Pulse oximetry Heart rate Body temperature Systolic And Diastolic Provider Name and Address Organization Details Last Updated DateTime 154.94 cm 34.2 kg/m2 20422.5 g 98 % 98 % 90 /min 98.2 [degF] 120/84 mm[Hg] Emilia Thompson [employer] 13:18:56 Social History Question Answer Notes LastModified by Organizat ion Details LastModified Time Tobacco Smoking Status Never Smoker Emilia Thompson [facility] [employer] 12/20/2024 13:19:12 Do You Have An Advance Directive? No Information not available 12/20/2024 Is Your Home Air Conditioned? Yes Information not available 12/20/2024 If You Are , What Was Your Level Of Alcohol Consumption Prior To ? None Information not available 12/20/2024 How Many Years Have You Consumed Alcohol? 8 Information not available 12/20/2024 Do You Wear A Helmet When Biking? No Information not available 12/20/2024 Are You Blind Or Do You Have Difficulty Seeing? No Information not available 12/20/2024 What Is Your Level Of Caffeine Consumption? Occasional Information not available 12/20/2024 Are You A Caregiver? 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 [employer]care[employer] Information not available 12/20/2024 Have You Been To An Area Known To Be High Risk For COVID-19? No Information not available 12/20/2024 Are You Deaf Or Do You Have Serious Difficulty Hearing? No Information not available 12/20/2024 What Type Of Diet Are You Following? REGULAR Information not available 12/20/2024 What Is The Highest Grade Or Level Of School You Have Completed Or The Highest Degree You Have Received? [id number] Information not available 12/20/2024 Who Is Your Employer? [employer] Information not available 12/20/2024 How Many Days Of Moderate To Strenuous Exercise, Like A Brisk Walk, Did You Do In The Last 7 Days? 3 Information not available 12/20/2024 On Those Days That You Engage In Moderate To Strenuous Exercise, How Many Minutes, On Average, Do You Exercise? 30 Information not available 06/17/2025 Have There Been Any Changes To Your Family Or Social Situation? No Information not available 12/20/2024 Are There Any Guns Present In Your Home? Yes Information not available 12/20/2024 Which Of Your Hands Is Dominant? Bilateral Information not available 12/20/2024 Do You Engage In Moderate/heavy Exercise (e.g. Brisk Walk, Jogging, Strength Training, Etc)? Yes Information not available 06/17/2025 What Is Your Home Situation? Both Parents Information not available 12/20/2024 How Many Times In The Past Year Have You Used An Illegal Drug Or Used A Prescription Medication For Nonmedical Reasons? 0 Information not available 06/17/2025 Where Do You Live? Apartment Information not available 06/17/2025 Do You Have A Medical Power Of Treasury Management Sales Consultant? No Information not available 12/20/2024 What Was The Date Of Your Most Recent Tobacco Screening? 06/17/2025 Information not available 06/17/2025 Are There Any Occupational Health Risks Where You Work? Biological, Chemical Information not available 12/20/2024 What Is Your Current Pack Years? 10packyears Information not available 12/20/2024 Have You Ever Been Counseled For Unhealthy Alcohol Use? No Information not available 06/17/2025 Do You Have Any Pets? Yes Information not available 12/20/2024 Do You Use Protection During Sex? No Information not available 12/20/2024 What Is Your Relationship Status? Domestic Partner Information not available 12/20/2024 Have You Repeated Any Grades? No Information not available 12/20/2024 Do You Wear A Seatbelt When Driving Or As A Passenger? Yes Information not available 06/17/2025 Do You Use Your Seat Belt Or Car Seat Routinely? Yes Information not available 12/20/2024 Are You Sexually Active? Yes Information not available 12/20/2024 Do You Have Any Siblings? 2 Information not available 12/20/2024 Do You Have Smoke And Carbon Monoxide Detectors In Your Home? Yes Information not available 12/20/2024 At What Age Did You Start Smoking Tobacco? 18 Information not available 12/20/2024 Are You Passively Exposed To Smoke? Yes Information not available 12/20/2024 Are There Any Smokers In Your House? Yes Information not available 12/20/2024 How Much Tobacco Do You Smoke? No Information not available 12/20/2024 Do You Participate In Social Media? Yes Information not available 12/20/2024 What Types Of Sporting Activities Do You Participate In? Hiking, Kayaking, Pickle Ball Information not available 06/17/2025 Do You Use Sunscreen Routinely? No Information not available 12/20/2024 Has Tobacco Cessation Counseling Been Provided? Yes Information not available 12/20/2024 On What Date Was Tobacco Cessation Counseling Provided? 06/17/2025 Information not available 06/17/2025 How Many Years Have You Smoked Tobacco? 6 Information not available 12/20/2024 Have You Recently Traveled Abroad? No Information not available 12/20/2024 Do You Have Difficulty Walking Or Climbing Stairs? No Information not available 12/20/2024 Are You Currently In School? No Information not available 12/20/2024 What Contraceptive Method Was Reported At Start Of This Visit? Female Sterilization Information not available 12/20/2024 Do You Feel Safe In Your Home? Yes Information not available 06/17/2025 Do You Have Any Dietary Restrictions? No Information not available 12/20/2024 How Many Days In The Past Year Have You Consumed 4 Or More Drinks? 10 Information not available 12/20/2024 Sex: Unknown Functional Status Question Answer Note LastModified by Organizat ion Details LastModified Time How many times per week do you consume alcohol? 1-2 times per week Information not available 06/17/2025 Do you or have you ever used smokeless tobacco? Never used smokeless tobacco Information not available 12/20/2024 Are you currently employed? Yes Information not available 12/20/2024 Do you have transportation difficulties? No Information not available 12/20/2024 Are you able to care for yourself independently? Yes Information not available 12/20/2024 Do you have difficulty dressing, bathing, grooming, or toileting? No Information not available 12/20/2024 Do you or have you ever used e-cigarettes or vape? Current user of electronic cigarettes Information not available 12/20/2024 What is your exercise level? Occasional Information not available 12/20/2024 Do you use any illicit or recreational drugs? No Information not available 12/20/2024 Do you feel safe in your relationship? Yes Information not available 06/17/2025 Do you or have you ever used any other forms of tobacco or nicotine? Yes Information not available 12/20/2024 What is your level of alcohol consumption? Occasional Information not available 12/20/2024 Are you able to walk independently without assistance or assistive devices? YESWOREST Information not available 12/20/2024 Do you have difficulty doing errands alone? No Information not available 12/20/2024 Mental Status Question Answer Note LastModified by Organizat ion Details LastModified Time Do you feel stressed (tense, restless, nervous, or anxious, or unable to sleep at night)? [id number] Information not available 06/17/2025 Do you have difficulty concentrating, remembering or making decisions? No Information no t available 12/20/2024 Are you or have you been involved with bullying? No Information not available 12/20/2024 Family History Relationship Description Onset Age of this Age Resolved Age Notes LastModified by Organization Details LastModified Time Mother Hypertensive disorder Not available 2024 13:18:31 Medical History Condition Response Allergies (Food, seasonal, environmental ) Y Emergency room visit since last appointm ent. N Depression Y Anxiety Disorder Y Acid Reflux (GERD) Y Hospitalizations N GI Problems Y Gynecological History Statement/Question Response Abnormal Pap N Flow Moderate Date of LMP 05/19/2025 On BCP's at Conception? N STIs/STDs N HPV Vaccine Y Duration of Flow (days) 7 Most Recent Mammogram Age at Menarche 10 Current Control Method Tubal Ligat ion Age at First Child 17 Frequency of Cycle (Q days) 30 Menses Monthly Y Date of Last Pap Smear 12/14/2023 LMP Approximate Obstetrics History GPAL:G 3 P 3 0 0 3 Type Value Multiple Births 0 Full Term 3 Induced 0 Spontaneous 0 Premature 0 Living 3 Ectopics 0 Total 3 Immunizations Vaccine Type Date Status Note Provider Nam e and Address Organization Details Recorded Time Hep B, adolescent or pediatric 8 completed [facility] 06/17/2025 13:11:29 IPV 8 completed Not Available [facility] 06/17/2025 13:11:29 Hib-Hep B 8 completed Not Available [facility] 06/17/2025 13:11:29 DTaP, unspecified formulation 8 completed Not Available [facility] 06/17/2025 13:11:29 DTaP, unspecified formulation 8 completed Not Available [facility] 06/17/2025 13:11:29 IPV 8 completed Not Available [facility] 06/17/2025 13:11:29 Hib, unspecified formulation 8 completed [facility] 06/[facility]25 13:11:29 DTaP, unspecified formulation 9 completed Not Available [facility] 06/17/2025 13:11:29 OPV, trivalent 9 completed Not Available [facility] 06/17/2025 13:11:29 varicella 9 completed Not Available [facility] 06/17/2025 13:11:29 Hib-Hep B 9 completed Not Available [facility] 06/17/2025 13:11:29 DTaP, unspecified formulation 9 completed Not Available [facility] 06/17/2025 13:11:29 MMR 9 completed Not Available [facility] 06/17/2025 13:11:29 DTaP, unspecified formulation 3 completed Not Available [facility] 06/17/2025 13:11:29 MMR 3 completed Not Available [facility] 06/17/2025 13:11:29 IPV 3 completed Not Available [facility] 06/17/2025 13:11:29 Tdap 9 completed Not Available [facility] 06/17/2025 13:11:29 Influenza, split virus, quadrivalent, preservative 7 completed Not Available [facility] 06/17/2025 13:11:29 Tdap 2 completed Not Available [facility] 06/17/2025 13:11:29 Influenza, split virus, trivalent, PF 4 completed Not Available [facility] 06/17/2025 13:11:29 [facility]ap 4 completed [facility] 06/17/[facility]25 13:11:29 RSV, bivalent, protein subunit RSVpreF, diluent reconstituted, 0.5 mL, PF 4 completed Not Available [facility] 06/17/2025 13:11:29 Past Encounters Encounter ID Performer Location Encounter Start Date Encounter Closed Date Diagnosis/Indication Diagnosis SNOMED-CT Code Diagnosis ICD10 Code Diagnosis IMO Codes Diagnosis Note [id number] [place] Stone, [place] [facility] [address] [place] [address] 06/17/2025 13:07:34 06/17/2025 13:39:04 Body mass index 30+ - obesity 478324237 Z68.35 Anxiety 43349125 F41.9 24620 Improving with sertraline Health Concerns Section Related Observation LastModified by Organization [employer]eta[employer] ls LastModified Time None Recorded Concern Status LastModified by Organization Details LastModified Time None Recorded Payers Encounter Date Sequence Insurance Name Policy Number Policy Joy Covered Member ID Joy Member ID Guarantor Name 06/17/2025 1 [facility] Giulia Booth [id number] Giulia Booth Notes Date Note Type Note Provider Name and Address Organization Details Recorded Time 06/17/2025 text/html ROS as noted in the HPI Patient presents for followupHas lost 5 pounds with AdipexStates anxiety is better with sertraline. Trying to do better about remembering to take it daily. GONZALEZ Romero [address] [place] [address], [place], [address], [facility] [employer] 06/17/2025 13:36:46 OBGyn Episode No OBEpisode recorded.
--- OUTSIDE RECORDS SUMMARY | 2025-06-26 07:51 | XMS_ITS | Continuity of Care Document ---
Author Organization [place] - [employer] [facility] Address [address] [place] [address] Assessment No assessment recorded. Plan of Treatment Reminders Order Date Submit Date Provider Last Modified By Organization Details Last Modified Time Details Appointments None recorded. Lab unlisted lab - toxassure flex 19, [id number] 2024 025 AXTELL [facility], [address] [place] [address], [place], [address], 5 08:14:08 Referral None recorded. Procedures None recorded. Surgeries None recorded. Imaging None recorded. Medication Orders sertraline 50 mg tablet 2024 025 [facility][id number], [address], [id number], 5 15:02:27 Adipex-P 37.5 mg tablet 2024 025 AXTELL [employer] [employer] #[id number], [address], [id number], 5 15:02:21 Patient TargetsNo targets recorded. Patient Instructions Encounter Date Encounter Id Patient Instructions Last Modified By Organization Details Last Modified Time 05/09/2025 [id number] body mass index: care instructions [email or web address] Not available 05/09/2025 15:02:11 learning about healthy weight [email or web address] Not available 05/09/2025 15:02:11 Reason for Referral None Reported. Results Created Date Observation Date Name Description Value Unit Range Abnormal Flag Note LastModifiedBy Organization Detail LastModifiedTime 05/09/2005/15/2025 TOXAS SURE FLEX 19, UR summary report FINAL ===== ===== ===== ===== ===== ===== ===== ===== ===== ===== ===== ===== ===== === Brie ol Bioma rkers , [place], Ur RFX ToxAs sure Flex 19, Ur ===== ===== ===== ===== ===== ===== ===== ===== ===== ===== ===== ===== ===== === Test Resul t Flag Units Drug Prese nt Ethyl Glucu ronid e 737 ng/mg creat Ethyl Sulfa te 336 ng/mg creat EtG and EtS are metab olite s of ethyl alcoh ol; EtG may be a ferme ntati on produ ct of gluco se, but EtS is not known to be forme d by ferme ntati on. Incid ental expos ure to alcoh ol may resul t in detec table level s of EtG and/o r EtS. EtG/E tS resul ts shoul d be inter prete d in the hayes xt of all avail able clini maya and behav ioral infor matio n. ===== ===== ===== ===== ===== ===== ===== ===== ===== ===== ===== ===== ===== === Test Resul t Flag Units Ref Range Creat inine 95 mg/dL >=20 ===== ===== ===== ===== ===== ===== ===== ===== ===== ===== ===== ===== ===== === Decla red Medic ation s: Medic ation list was not provi ded. ===== ===== ===== ===== ===== ===== ===== ===== ===== ===== ===== ===== ===== === For clini maya consu ltati on, pleas e call . ===== ===== ===== ===== ===== ===== ===== ===== ===== ===== ===== ===== ===== === Not Available [facility] ([facility]) [address] [place], [address], 05/15/2025 08:14:08 05/09/2005/15/2025 TOXAS SURE FLEX 19, UR pdf . Not Available [facility] ([facility]) [address] [place], [address], 05/15/2025 08:14:08 05/09/2005/15/2025 TOXAS SURE FLEX 19, UR creatinine 95 mg/dL >=20 REFER ENCE RANGE : Ref Range >=20 Not Available [facility] ([facility]) [address] [place], [address], 05/15/2025 08:14:08 05/09/2005/15/2025 TOXAS SURE FLEX 19, UR amphetamines ia Negati ve NG/mL cutoff :300 Not Available [facility] ([facility]) [address] [place], [address], 05/15/2025 08:14:08 05/09/2005/15/2025 TOXAS SURE FLEX 19, UR benzodiazepi rose Negati ve Not Available [facility] ([facility]) [address] [place], [address], 05/15/2025 08:14:08 05/09/20 25 05/15/2025 TOXAS SURE FLEX 19, UR diazepam Not Detect ed NG/mg _crea t Not Available [facility] ([facility]) [address] [place], [address], 05/15/2025 08:14:08 05/09/2005/15/2025 TOXAS SURE FLEX 19, UR desmethyldia zepam Not Detect ed NG/mg _crea t Not Available [facility] ([facility]) [address] [facility], [place], [address], 05/15/2025 08:14:08 05/09/2005/15/2025 TOXAS SURE FLEX 19, UR oxazepam Not Detect ed NG/mg _crea t Not Available [facility] ([facility]) [address] [place], [address], 05/15/2025 08:14:08 05/09/2005/15/2025 TOXAS SURE FLEX 19, UR temazepam Not Detect ed NG/mg _crea t Expec jos metab olism of benzo diaze pine class drugs : Paren t Drug Detec jos Metab olite s ----- ----- - ----- ----- ----- ----- Diaze neftaly: Desme thyld iazep am, Temaz epam, Oxaze neftaly Chlor diaze poxid e: Desme thyld iazep am, Oxaze neftaly Clora zepat e: Desme thyld iazep am, Oxaze neftaly Halaz epam: Desme thyld iazep am, Oxaze neftaly Temaz epam: Oxaze neftaly Oxaze neftaly: None Not Available [facility] ([facility]) [address] [place], [address], 05/15/2025 08:14:08 05/09/2005/15/2025 TOXAS SURE FLEX 19, UR alprazolam Not Detect ed NG/mg _crea t Not Available [facility] ([facility]) [address] [place], [address], 05/15/2025 08:14:08 05/09/2005/15/2025 TOXAS SURE FLEX 19, UR alpha-hydrox yalprazolam Not Detect ed NG/mg _crea t Not Available [facility] ([facility]) [address] [place], [address], 05/15/2025 08:14:08 05/09/2005/15/2025 TOXAS SURE FLEX 19, UR desalkylflur azepam Not Detect ed NG/mg _crea t Not Available [facility] ([facility]) [address] [place], [address], 05/15/2025 08:14:08 05/09/2005/15/2025 TOXAS SURE FLEX 19, UR lorazepam Not Detect ed NG/mg _crea t Not Available [facility] ([facility]) [address] [place], [address], 05/15/2025 08:14:08 05/09/2005/15/2025 TOXAS SURE FLEX 19, UR alpha-hydrox ytriazolam Not Detect ed NG/mg _crea t Not Available [facility] ([facility]) [address] [place], [address], 05/15/2025 08:14:08 05/09/2005/15/2025 TOXAS SURE FLEX 19, UR clonazepam Not Detect ed NG/mg _crea t Not Available [facility] ([facility]) [address] [place], [address], 05/15/2025 08:14:08 05/09/20 25 05/15/2025 TOXAS SURE FLEX 19, UR 7-aminoclona zepam Not Detect ed NG/mg _crea t Not Available [facility] ([facility]) [address] [place], [address], 05/15/2025 08:14:08 05/09/2005/15/2025 TOXAS SURE FLEX 19, UR midazolam Not Detect ed NG/mg _crea t Not Available [facility] ([facility]) [address] [place], [address], 05/15/2025 08:14:08 05/09/2005/15/2025 TOXAS SURE FLEX 19, UR alpha-hydrox ymidazolam Not Detect ed NG/mg _crea t Not Available [facility] ([facility]) [address] [place], [address], 05/15/2025 08:14:08 05/09/2005/15/2025 TOXAS SURE FLEX 19, UR flunitrazepa m Not Detect ed NG/mg _crea t Not Available [facility] ([facility]) [address] [place], [address], 05/15/2025 08:14:08 05/09/2005/15/2025 TOXAS SURE FLEX 19, UR desmethylflu nitrazepam Not Detect ed NG/mg _crea t Not Available [facility] ([facility]) [address] [place], [address], 05/15/2025 08:14:08 05/09/2005/15/2025 TOXAS SURE FLEX 19, UR cocaine metabolite ia Negati ve NG/mL cutoff :150 Not Available [facility] ([facility]) [address] [place], [address], 05/15/2025 08:14:08 05/09/2005/15/2025 TOXAS SURE FLEX 19, UR ethanol biomarkers ia COMMEN T NG/mL cutoff :500 Furth er testi ng indic ated Not Available [facility] ([facility]) [address] [place], [address], 05/15/2025 08:14:08 05/09/20 25 05/15/2025 TOXAS SURE FLEX 19, UR cannabinoids ia Negati ve NG/mL cutoff :20 Not Available [facility] ([facility]) [address] [place], [address], 05/15/2025 08:14:08 05/09/20 25 05/15/2025 TOXAS SURE FLEX 19, UR 6-acetylmorp ken ia Negati ve NG/mL cutoff :10 Not Available [facility] ([facility]) [address] [place], [address], 05/15/2025 08:14:08 05/09/20 25 05/15/2025 TOXAS SURE FLEX 19, UR opiate class ia Negati ve NG/mL cutoff :100 Not Available [facility] ([facility]) [address] [place], [address], 05/15/2025 08:14:08 05/09/20 25 05/15/2025 TOXAS SURE FLEX 19, UR oxycodone class ia Negati ve NG/mL cutoff :100 Not Available [facility] ([facility]) [address] [place], [address], 05/15/2025 08:14:08 05/09/2005/15/2025 TOXAS SURE FLEX 19, UR methadone ia Negati ve NG/mL cutoff :100 Not Available [facility] ([facility]) [address] [place], [address], 05/15/2025 08:14:08 05/09/2005/15/2025 TOXAS SURE FLEX 19, UR methadone mtb ia Negati ve NG/mL cutoff :100 Not Available [facility] ([facility]) [address] [place], [address], 05/15/2025 08:14:08 05/09/20 25 05/15/2025 TOXAS SURE FLEX 19, UR buprenorphin e ia Negati ve NG/mL cutoff :5.0 Not Available [facility] ([facility]) [address] [place], [address], 05/15/2025 08:14:08 05/09/2005/15/2025 TOXAS SURE FLEX 19, UR fentanyl ia Negati ve NG/mL cutoff :2.0 Not Available [facility] ([facility]) [address] [place], [address], 05/15/2025 08:14:08 05/09/2005/15/2025 TOXAS SURE FLEX 19, UR tapentadol ia Negati ve NG/mL cutoff :200 Not Available [facility] ([facility]) [address] [place], [address], 05/15/2025 08:14:08 05/09/2005/15/2025 TOXAS SURE FLEX 19, UR propoxyphene ia Negati ve NG/mL cutoff :300 Not Available [facility] ([facility]) [address] [place], [address], 05/15/2025 08:14:08 05/09/20 25 05/15/2025 TOXAS SURE FLEX 19, UR tramadol ia Negati ve NG/mL cutoff :200 Not Available [facility] ([facility]) [address] [place], [address], 05/15/2025 08:14:08 05/09/2005/15/2025 TOXAS SURE FLEX 19, UR methylphenid ate ia Negati ve NG/mL cutoff :100 Not Available [facility] ([facility]) [address] [place], [address], 05/15/2025 08:14:08 05/09/20 25 05/15/2025 TOXAS SURE FLEX 19, UR barbiturates ia Negati ve NG/mL cutoff :200 Not Available [facility] ([facility]) [address] [place], [address], 05/15/2025 08:14:08 05/09/2005/15/2025 TOXAS SURE FLEX 19, UR phencyclidin e ia Negati ve NG/mL cutoff :25 Not Available [facility] ([facility]) [address] [place], [address], 05/15/2025 08:14:08 05/09/2005/15/2025 TOXAS SURE FLEX 19, UR gabapentin ia Negati ve ug/mL cutoff :1.0 Not Available [facility] ([facility]) [address] [place], [address], 05/15/2025 08:14:08 05/09/2005/15/2025 TOXAS SURE FLEX 19, UR anticonvulsa nts Negati ve Not Available [facility] ([facility]) [address] [place], [address], 05/15/2025 08:14:08 05/09/2005/15/2025 TOXAS SURE FLEX 19, UR pregabalin Not Detect ed Not Available [facility] ([facility]) [address] [place], [address], 05/15/2025 08:14:08 05/09/2005/15/2025 TOXAS SURE FLEX 19, UR carisoprodol ia Negati ve NG/mL cutoff :100 Not Available [facility] ([facility]) [address] [place], [address], 05/15/2025 08:14:08 05/09/2005/15/2025 BRIE OL BIOMA RKERS , [place], UR RFX ethanol biomarkers +POSIT YFN+ Not Available [facility] ([facility]) [address] [place], [address], 05/15/2025 08:14:09 05/09/20 25 05/15/2025 BRIE OL BIOMA RKERS , [place], UR RFX ethyl glucuronide 737 NG/mg _crea t Not Available [facility] ([facility]) [address] [place], [address], 05/15/2025 08:14:09 05/09/2005/15/2025 BRIE OL BIOMA RKERS , [place], UR RFX ethyl sulfate 336 NG/mg _crea t Not Available [facility] ([facility]) [address] [place], [address], 05/15/2025 08:14:09 Result Notes None recorded. Problems Name Problem SNOMED Code Status Onset Date Resolution Date Notes Provider Name and Address Organization Details Recorded Time Gastroesoph ageal reflux disease without esophagitis 945396806 Active 2024 GONZALEZ Romero [address] [place] [address], [address], [employer] 13:40:34 Anxiety 13547562 Active 2024 GONZALEZ Romero [address] [place] [address], [phone], [employer] 14:59:04 Obese class II 6874110616279 05 Active 2024 GONZALEZ Romero [address] [place] [address], [address], [employer] 10:43:27 Problem Notes None recorded. Procedures Surgical History Date Name Laterality Status Provider Name and Address Organization Details Recorded Time 5 Tubal Ligation completed Emilia [employer] 12/20/2024 13:12:45 4 Date of Last Pap Smear completed Emilia [employer] 12/20/2024 13:12:44 Imaging Results None recorded. Procedure Notes None recorded. Medical Equipment None Reported. Allergies Allergen ID Allergen Name Allergen Category Reaction Reaction Severity Criticality Documentation Date Start Date Code Code System Note Provider Name and Address Organization Details Recorded Time 24552 Zithromax medicatio n itching nausea rash vomiting Not available Not available Not available Not available Not available 12/20/202420157 4 RxNorm Emilia Vice de santiago [facility] [employer] [facility]. 5 13:12:43 Medications Name Sig Start Date [...] height Body mass index (BMI) Body weight Body temperature Heart rate Oxygen saturation Oxygen saturation in Arterial blood by Pulse oximetry Systolic And Diastolic Provider Name and Address Organization Details Last Updated DateTime 5 154.94 cm 35.1 kg/m2 95116.7 4 g 97.7 [degF] 92 /min 96 % 96 % 120/80 mm[Hg] Emiliasara Thompson [employer]. 14:44:42 Social History Question Answer Notes LastModified by Organizat ion Details LastModified Time Tobacco Smoking Status Never Smoker [facility] 12/20/2024 13:19:12 Do You Have An Advance [...] Information not available 06/17/2025 What Type Of Certified Pedorthotist Do You Use? DaycarePreschool Information not available [...] Or The Highest Degree You Have Received? [id number] Information not available 12/20/2024 Who Is Your [...] Do You Have A Medical Power Of Health Safety Coordinator? No Information not available 12/20/2024 What Was [...] Functional Status Question Answer Note LastModified by STWA ion Details LastModified Time How many times [...] anxious, or unable to sleep at night)? [id number] Information not available 06/17/2025 Do you have difficulty concentrating, remembering or making decisions? No Information no t available 12/20/2024 Are you or have you been involved with bullying? No Information not available 12/20/2024 Family History Relationship Description Onset Age of this Age Resolved Age Notes LastModified by Organization Details LastModified Time Mother Hypertensive disorder Not available 2024 13:18:31 Medical History Condition Response Anxiety Disorder Y Allergies (Food, seasonal, environmental ) Y Hospitalizations N Acid Reflux (GERD) Y Emergency room visit since last appointm ent. N Depression Y GI Problems Y Gynecological History Statement/Question Response [...] adolescent or pediatric 8 completed Not Available [facility] 06/17/2025 13:11:29 IPV 8 completed Not Available [employer] 06/17/2025 13:11:29 Hib-Hep B 8 completed Not Available [facility] 06/17/2025 13:11:29 DTaP, unspecified formulation 8 completed Not Available [facility] 06/17/2025 13:11:29 DTaP, unspecified formulation 8 completed Not Available [facility] 06/17/2025 13:11:29 IPV 8 completed Not Available [facility] 06/17/2025 13:11:29 Hib, unspecified formulation 8 completed Not Available [facility] 06/17/2025 13:11:29 DTaP, unspecified formulation 9 completed Not Available [facility] 06/17/2025 13:11:29 OPV, trivalent 9 completed Not Available [facility] 06/17/2025 13:11:29 varicella 9 completed Not Available [facility] 06/17/2025 13:11:29 Hib-Hep B 9 completed Not Available [facility] 06/17/2025 13:11:29 DTaP, unspecified formulation 9 completed Not Available [facility] 06/17/2025 13:11:29 MMR 9 completed Not Available [facility] 06/17/2025 13:11:29 DTaP, unspecified formulation 3 completed Not Available [facility] 06/17/2025 13:11:29 MMR 3 completed Not Available [facility] 06/17/2025 13:11:29 IPV 3 completed Not Available [facility] 06/17/2025 13:11:29 Tdap 9 completed Not Available [facility] 06/17/2025 13:11:29 Influenza, split virus, quadrivalent, preservative 7 completed Not Available [facility] 06/17/2025 13:11:29 Tdap 2 completed Not Available [facility] 06/17/2025 13:11:29 Influenza, split virus, trivalent, PF 4 completed Not Available [facility] 06/17/2025 13:11:29 Tdap 4 completed Not Available [facility] 06/17/2025 13:11:29 RSV, bivalent, protein subunit RSVpreF, diluent reconstituted, 0.5 mL, PF 4 completed Not Available [facility] 06/17/2025 13:11:29 Past Encounters Encounter ID Performer Location Encounter Start Date Encounter Closed Date Diagnosis/Indication Diagnosis SNOMED-CT Code Diagnosis ICD10 Code Diagnosis IMO Codes Diagnosis Note [id number] GONZALEZ Romero [facility] [address] [place] [address] 05/09/2025 14:38:22 05/09/2025 14:58:29 Long-term current use of drug therapy 244114714 Z79.899 95971590 Anxiety 15526629 F41.9 43979 Body mass index 30+ - obesity 279301266 Z68.35 142681 Health Concerns Section Related Observation LastModified by Organization Detai ls LastModified Time None Recorded Concern Status LastModified by Organization Details LastModified Time None Recorded Payers Encounter Date Sequence Insurance Name Policy Number Policy Joy Covered Member ID Joy Member ID Guarantor Name 05/09/2025 1 [employer] [facility] (MEDICAID HMO) Giulia Booth [id number] Giulia Booth Notes Date Note Type Note Provider Name and Address Organization Details Recorded Time 05/09/2025 text/html ROS as noted in the HPI Patient presents to establish care. Needs refills on Zoloft. Previously prescribed by OB. Would like to try Adipex. She is 9 months post . Exercising, eating clean and weight is not budging. GONZALEZ Romero [address] [place] [address], [phone], [facility] [employer] 05/09/2025 15:10:51 OBGyn Episode No OBEpisode recorded.
--- OUTSIDE RECORDS SUMMARY | 2025-06-26 07:51 | XMS_ITS | Clinical Summary ---
Author Organization [facility] Address [address] [place] [address] Care Team Providers Care Human Resources Admin Name Role Phone Belle Caldera Primary Care Provider [phone] Allergies Active Allergy Reactions Criticality Noted Date Comments Azithromycin Nausea,Rash,Vomiting Low 06/14/2021 Medications pantoprazole (Protonix) 40 MG EC tablet Take 1 tablet (40 mg) by mouth daily. 4 Active Creon [id number] units capsule delayed-release particles capsule TAKE 1 CAPSULE BY MOUTH THREE TIMES DAILY WITH MEALS 4 Active lidocaine (Uro-Jet) 2 % gel Apply 1 Application topically if needed for mild pain. 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 30 tablet 10 5 11/20/19 26 Active Active Problems Problem Noted Date Diagnosed Date Postoperative follow-up 10/23/2024 Family history of ASD (atrial septal defect) Resolved Problems Problem Noted Date Diagnosed Date Resolved Date Encounter for female sterilization procedure 10/23/2024 Encounter for routine follow-up 09/11/2024 09/23/2024 COVID-19 affecting in third trimester 08/09/2024 09/11/2024 Other constipation 06/21/2024 Depression during , antepartum 06/21/2024 09/11/2024 Uterine size-date discrepanc y in second trimester 05/22/2024 06/07/2024 Depression during in second trimester 05/22/2024 06/07/2024 Need for Tdap vaccination 05/22/2024 38 weeks gestation of 03/06/2024 09/11/2024 state, incidental 01/19/2024 0 03/06/2024 Assessment & Plan (01/19/2024 11:17 AM EDT): - labs today - pap up to date - US shows viable SIUP with CRL not c/w LMP, change EMILEE to 08/18/24 - desires genetic screening - FTS US ordered, desires NIPT - new OB back pack given - continue PNV - desires permanent sterilization - daughter with ASD - plan echo - RTC 3-4 weeks Menorrhagia with regular cycle 03/11/2022 09/08/2022 Encounter for initial prescr iption of injectable contraceptive 03/11/2022 01/19/2024 Assessment & Plan (09/08/2022 10:22 AM EST): - desires to start Depo today - UPT negative - discussed irregular bleeding for first 3 months. Discussed depo is not a great watermelon harvesting supervisor contraception option as a side effect is reversible decreased bone mineral density. - RTC as needed Assessment & Plan (03/11/2022 3:33 PM EDT): - discussed different contraception options. Interested in the patch or the nuvaring. - no contraindications to estrogen - she would like to try the patch - will use continuously for menorrhagia - pap 2021 normal - RTC as needed Encounter for routine follow-up 12/29/2021 09/08/2022 Assessment & Plan (12/29/2021 2:42 PM EDT): - pap done today - Sprintec Rx sent - discussed that OCPs will also help decrease milk supply and help her transition to bottle feeding. Discussed spacing out /pump as tolerated to help wean. - mood stable - RTC as needed Mastitis, obstetric, delivered 12/29/2021 09/08/2022 Assessment & Plan (12/29/2021 2:43 PM EDT): - no concern for abscess at this time - dicloxacillin Rx x 10 days sent - tylenol, ibuprofen for fever/pain - rec to continue to breastfeed/pump during this time - instructed to call if her symptoms do not improve over the next few days. Pain of right lower extremity 11/26/2021 09/08/2022 Assessment & Plan (11/26/2021 3:10 PM EDT): - + Homann sign - to ED for LE duplex Supervision of other high ri sk pregnancies, third trimester 09/29/2021 09/08/2022 Assessment & Plan (11/29/2021 4:43 PM EDT): - labs reviewed, GBS negative - continue PNV and baby ASA - anticipate - cervix still 50/-3 - will come in 4 PM for IOL - normal AF, dopplers, BPP 03/28 today Assessment & Plan (11/26/2021 3:09 PM EDT): - labs reviewed - GBS negative - continue PNV and baby ASA - anticipate - IOL scheduled for 12/02 AM - is /-3, will recheck on Monday, may need to come in 12/01 PM - consents signed for IOL - on US this week, EFW had decreased from 50% to 11%, has repeat US this Monday - RTC Monday Assessment & Plan (11/19/2021 4:00 PM EDT): - labs reviewed, GBS negative - continue PNV and baby ASA - anticipate - IOL 414 AM - RTC for 2x weekly NST and routine PNV Assessment & Plan (11/12/2021 2:34 PM EDT): - continue baby ASA and PNV - GBS today - anticipate - IOL 4/14 AM - RTC for 2x weekly NST and routine PNV Assessment & Plan (11/05/2021 2:44 PM EDT): - continue baby ASA and PNV - GBS at 36 weeks - anticipate - RTC for 2x weekly NST and routine visit. Assessment & Plan (10/29/2021 3:15 PM EST): - continue baby ASA and PNV - GBS at 36 weeks - anticipate - RTC for 2x weekly NST and routine visit Assessment & Plan (10/20/2021 10:02 AM EST): - Prelim growth US today: vertex, post plac, ADAN 14, EFW 54%, AC 74%, BPP 03/28 - continue baby ASA and PNV - RTC for 2x weekly NSTs starting next week Assessment & Plan (10/18/2021 4:54 PM EST): - labs reviewed - Anusol suppositories called in for hemorrhoid pain - growth US 3 for S>D - start NSTs at 33 weeks for COVID - RTC for ultrasound related symphysis pain in third trimester, antepartum 09/29/2021 09/08/2022 Maternal care for (suspected ) hereditary disease in fetus, not applicable or unspecified 09/16/2021 05/22/2024 COVID-19 affecting in third trimester 09/15/2021 09/08/2022 Assessment & Plan (11/26/2021 2:54 PM EDT): Continue baby ASA and 2x weekly NSTs Assessment & Plan (11/19/2021 3:59 PM EDT): Continue baby ASA and 2x weekly NSTs Assessment & Plan (11/12/2021 2:33 PM EDT): Continue baby ASA and 2x weekly NSTs Assessment & Plan (11/05/2021 2:44 PM EDT): Continue baby ASA and 2x weekly NSTs Assessment & Plan (10/29/2021 3:15 PM EST): Continue baby ASA and 2x weekly NSTs Assessment & Plan (10/20/2021 9:08 AM EST): - start NSTs next week - continue baby ASA Assessment & Plan (10/18/2021 4:55 PM EST): - start NSTs 32 weeks - continue baby ASA Rib pain on left side 09/15/20212022 Assessment & Plan (09/15/2021 10:42 AM EST): - has not improved with flexeril - CXR ordered 27 weeks gestation of 08/31/2020 09/29/2021 Assessment & Plan (09/15/2021 10:42 AM EST): - labs reviewed - Tdap today - continue PNV and baby ASA - growth US ordered for 32 weeks S>D - RTC 2 weeks Assessment & Plan (09/08/2021 4:06 PM EST): - labs reviewed, glucola normal - COVID swab performed today - rec symptomatic care with mucinex, tylenol - instructed to call if rib pain returns - sounds MSK - will call in flexeril if it returns - RTC for routine apt next week - Tdap at that time - if COVID positive may need to reschedule Assessment & Plan (08/18/2021 11:30 AM EST): - labs reviewed - glucola today - continue PNV - RTC 4 weeks - Tdap then Assessment & Plan (07/14/2021 12:54 PM EST): - labs reivewed - normal tanja US today - Daughter born with ASD - echo ordered - continue PNV - glucola given for next apt - RTC 4 weeks Assessment & Plan (06/14/2021 2:58 PM EDT): - labs today - Ultrasound: measuring 14w4d, viable SIUP, posterior placenta, subjectively normal amniotic fluid - RTC for formal dating/limited tanja US USAMA - discuss genetic screening at next visit - daughter born with ASD - will need ECHO - PNV Rx sent - can continue pantoprazole for GERD Immunizations Immunization Administration Dates Next Due DTaP 12/03/2002, 9,1998,1997,1998 DTaP, Unspecified 12/03/2002, 9,1998,1997,1998 Hep B, Adolescent or Pediatric 1998 HiB, unspecified 1998 Hib (PRP-OMP) 1998 Hib / Hep B 05/10/1999,1998 IPV 12/03/2002,1998,1998 Influenza, injectable, quadrivalent 05/24/2017,1 Influenza, seasonal, injecta ble, preservative free 04/24/2024 MMR 12/03/2002,06/28/1999 OPV 05/10/1999 OPV Bivalent - Non-US 05/10/1999 Rsv, Bivalent, Protein Subun it Rsvpref, Diluent Reconstituted, 0.5mL, PF 07/05/2024 Tdap 05/22/2024,09/15/2021,01/02/2009 Varicella 05/10/1999 Family History Medical History Relation Name Comments Cardiac Devices Pacemaker Present Brother atrial septal defect Daughter No Known Problems Father Hyperlipidemia Maternal Grandfather Thyroid disease Maternal Grandmother No Known Problems Mother Alcohol abuse Paternal Grandfather Madhu Liver disease Paternal Grandfather Madhu Heart attack Paternal Grandmother Hypertension Sister No Known Problems Son Relation Name Status Comments Brother Alive Daughter Alive Father Alive Maternal Grandfather Alive Maternal Grandmother Alive Mother Alive Paternal Grandfather Madhu Paternal Grandmother Sister Alive Son Alive Social History Tobacco Use Types Packs/Day Years Used Date Smoking Tobacco: Former Cigarettes Smokeless Tobacco: Current Tobacco Cessation:Ready to Q uit: Not Asked; Counseling Given: Not Answered Alcohol Use Standard Drinks/Week Comments Not Currently 0 (1 standard drink = 0.6 oz pur e alcohol) PHQ-2 Answer Date Recorded Patient Health Questionnaire-2 Score 0 09/23/2024 [place] Depression Scale Answer Date Recorded [place] Depression Scale Total 0 09/11/2024 The thought of harming myself has occurred to me . Never 09/11/2024 PHQ-9 Answer Date Recorded Patient Health Questionnaire-9 Score 0 09/11/2024 Comments No Sex and Gender Information Value Date Recorded Sex Assigned at Not on file Legal Sex Female 6:01 PM EDT Gender Identity Not on file Sexual Orientation Not on file Last Filed Vital Signs Vital Sign Reading Time Taken Comments Blood Pressure 114/72 10/23/2024 1:26 PM EST Pulse 109 09/23/2024 1:22 PM EST Temperature 36.4 C (97.6 F) 09/23/2024 1:22 PM EST Respiratory Rate 16 09/11/2024 10:32 AM EST Oxygen Saturation 97% 09/23/2024 1:22 PM EST Inhaled Oxygen Concentration - - Weight 82 kg (180 lb 12.4 oz) 10/23/2024 1:26 PM EST Height 157.5 cm (5' 2 ) 10/23/2024 1:26 PM EST Body Mass Index 33.06 10/23/2024 1:26 PM EST Plan of Treatment Upcoming Encounters Date Type Department Care Team (Late st Contact Info) Description 10/29/2025 1:45 PM EDT Office Visit Obstetrics & Gynecology [address] [place] [address] Nalini Carr MD [address] [place] [address] Health Maintenance Due Date Last Done Comments [facility]-/Child/Adol SDOH Screenings 1998 [facility]-Varicella Vaccines (2 of 2 - 2-dose childhood series) 12/31/2002 05/10/1999 [facility]- SDOH Screenings 2016 [facility]-Adult SDOH Screenings 2016 [facility]-Pap Smear 12/29/2024 12/29/2021 HPV Vaccines (1 - 3-dose SCDM series) 2025 DVF-JZAXO-19 Vaccine ( - season) 2025 [facility]-Influenza Vaccine (#1) 04/21/202504/24, 05/24/2017, 05/24/2017 [facility]-Depression Screening 09/23/2025 025, 09/11/2024, 09/11/2024 [facility]-DTaP,Tdap,and Td Vaccines (9 - Td or Tdap) 05/22/2034 05/22/2024, 09/15/2021, 01/02/2009, Additional history exists [facility]-Zoster Vaccines (1 of 2) 2048 05/10/1999 [facility]-HIB Vaccines Completed 05/10/1999, , 1998, Additional history exists [facility]-Hepatitis B Vaccines Completed 999, 1998, 1998 [facility]-IPV Vaccines Completed 12/03/2002, , 05/10/1999, Additional history exists [facility]-HIV Screening Completed 01/19/2024, , 03/24/2017 [facility]-Hepatitis C Screening Completed 2023, 06/14/2021, 03/24/2017 [facility]-RSV Vaccine: 60+ Years or Discontinued 07/05/2024 [facility]-Obesity Intervention Completed 025, 09/23/2024, 09/11/2024, Additional history exists [facility]-Hepatitis A Vaccines Aged Out No longer eligible based on patient's age to complete this topic [facility]-Pneumococcal Vaccine: Pediatrics (0 to 5 Years) and At-Risk Patients (6 to 49 Years) Aged Out No longer eligible based on patient's age to complete this topic [facility]-Rotavirus Vaccines Aged Out No lo nger eligible based on patient's age to complete this topic Procedures Procedure Name Priority Date/Time Associated Diagnosis Comments HEPATITIS C ANTIBODY W/REFLEX TO HCV QUANT PCR Routine 01/19/2024 9:11 AM EDT state, incidental HIV 1/2 ANTIBODY/ANTIGEN SCREEN WITH REFLEX TO HIV I/II DIFFERENTIATION Routine 01/19/2024 9:11 AM EDT state, incidental PAP TEST - CYTOLOGY Routine 12/29/2021 1 :58 PM EDT Encounter for gynecological examination without abnormal finding from Last 3 Months or Most Recently Relevant to Health Maintenance Results * HIV 1 & 2 Antibody/Antigen Screen (01/19/2024 9:11 AM EDT) HIV 1 & 2 Antibody/Antigen Screen Non Reactive Non Reactive 01/19/2024 1:36 PM EDT [facility] Comment:Screening for HIV 1 & 2 antibodies, and P24 antigen is NONREACTIVE. No confirmatory testing is required. Blood Venous blood specimen / Unknown Venipuncture / Unknown 01/19/2024 9:11 AM EDT 01/19/2024 1:00 PM EDT Nalini Carr MD LAB BLOOD ORDERABLES Fin al Result Performing Organization Address City/[facility]/ZIP Co de Phone Number [facility] [address] [place] [address] * Hepatitis C Antibody w/Reflex to HCV Quant PCR (01/19/2024 9:11 AM EDT) Hepatitis C Antibody Negative Negative 01/19/2024 1:36 PM EDT [facility] Blood Venous blood specimen / Unknown Venipuncture / Unknown 01/19/2024 9:11 AM EDT 01/19/2024 1:00 PM EDT Nalini Carr MD LAB BLOOD ORDERABLES Fin al Result Performing Organization Address City/[facility] Co de Phone Number [facility] [address] [place] [address] * Pap Smear (12/29/2021 1:58 PM EDT) Case Report Cytology Case: [id number] Authorizing Provider: Nalini Carr MD Collected: 12/29/2021 1358 Ordering Location: Obstetrics & Gynecology Received: 12/30/2021 0828 First Screen: JIMBO Bernal Specimen: ThinPrep Pap Test, Liquid-Based Cervical/Vaginal, CERVICAL/VAGINAL 01/04/2022 5:49 AM EDT [facility] Interpretation NEGATIVE FOR INTRAEPITHELIAL LESION OR MALIGNANCY 01/04/2022 5:49 AM EDT [facility] at 0549 EDT Specimen Adequacy Satisfactory for evaluation; endocervical/saab sformation zone component present. Slide scanned and imaged by ThinPrep Imaging System with manual review of all selected mejia. 01/04/2022 5:49 AM EDT [facility] Cervical cytology is a screening test primarily for squamous cancers and precursors and has associated false negative and positive results. New technologies such as liquid based sampling may decrease but will not eliminate all false negative results. Regular screening and follow-up of unexplained clinical signs and symptoms are recommended to minimize false negative results. Please see the ASCCP website (www.asccp.org)fo r followup recommendations. If HPV testing was requested, correlation with the results is suggested (please call Microbiology at [phone] for results). 01/04/2022 5:49 AM EDT [facility] Menstrual Status Post- 022 5:49 AM EDT [facility] History of Hysterectomy Not Applicable 01/04/2022 5:49 AM EDT [facility] Contraceptive History Not Applicable 01/04/2022 5:49 AM EDT [facility] Screening Type Routine Screen 2021 5:49 AM EDT [facility] High Risk? No 01/04/2022 5:49 AM EDT [facility] HPV Testing Requested? Request HPV testing if ASCUS or LSIL. 01/04/2022 5:49 AM EDT [facility] Previous Cancer History No 01/04/2022 5:49 AM EDT [facility] Clinical Information Z01.419 - Encounter for gynecological examination without abnormal finding [ICD-10-CM] 01/04/2022 5:49 AM EDT [facility] Last Menstrual Period 03/17/2021 01/04/2022 5:49 AM EDT [facility] Swab Vaginal and cervical cytologic material / Unknown Non-blood Collection / Unknown 12/29/2021 1:58 PM EDT 12/30/2021 8:28 AM EDT Nalini Carr MD LAB CYTOLOGY ORDERABLES Final Result [facility] [address] [place] [address] from Last 3 Months or Most Recently Relevant to Health Maintenance Insurance [id number] Care Teams Human Resources Admin Relationship Specialty Start Date End Date Belle Caldera PA [address] [place] [address] PCP - General 05/08/24
--- OUTSIDE RECORDS SUMMARY | 2025-06-26 07:51 | XMS_ITS | Data Portability ---
Author Organization [employer] [place] - [facility] Address [address] [address] Assessment No assessment recorded. Plan of Treatment Reminders Order Date Submit Date Provider Last Modified By Organization Details Last Modified Time Details Appointments None recorded. Lab unlisted lab - toxassure flex 19, [id number] 2024 025 [facility], [address] [place] [address], [place], [address], 08:14:08 Referral None recorded. Procedures None recorded. Surgeries None recorded. Imaging None recorded. Medication Orders Adipex-P 37.5 mg tablet 2024 025 [id number], [address], [id number], 5 13:29:07 sertraline 50 mg tablet 2024 025 [facility][id number], [address], [id number], 5 15:02:27 Adipex-P 37.5 mg tablet 2024 025 [facility]73230, [address], [phone], 5 15:02:21 pantoprazol e 40 mg tablet,teddy yed release 2024 025 [facility]47365, [address] [address] [place], [id number], 13:41:23 Patient TargetsNo targets recorded. Patient Instructions Encounter Date Encounter Id Patient Instructions Last Modified By Organization Details Last Modified Time 05/09/2025 [id number] body mass index: care instructions [email or web address] Not available 05/09/2025 15:02:11 learning about healthy weight [email or web address] Not available 05/09/2025 15:02:11 Reason for Referral [...] ===== ===== ===== === Not Available [facility] ([facility]) [address] [place], [address], 05/15/2025 08:14:08 05/09/20 25 05/15/2025 TOXAS SURE FLEX 19, UR pdf . Not Available [facility] ([facility]) [address] [place], [address], 05/15/2025 08:14:08 05/09/2005/15/2025 TOXAS SURE FLEX 19, UR creatinine 95 mg/dL >=20 REFER ENCE RANGE : Ref Range >=20 Not Available [facility] ([facility]) [address] [place], [address], 05/15/2025 08:14:08 05/09/2005/15/2025 TOXAS SURE FLEX 19, UR amphetamines ia Negati ve NG/mL cutoff :300 Not Available [facility] ([facility]) [address] [place], [address], 05/15/2025 08:14:08 05/09/2005/15/2025 TOXAS SURE FLEX 19, UR benzodiazepi rose Negati ve Not Available [facility] ([facility]) [address] [place], [address], 05/15/2025 08:14:08 05/09/2005/15/2025 TOXAS SURE FLEX 19, UR diazepam Not Detect ed NG/mg _crea t Not Available [facility] ([facility]) [address] [place], [address], 05/15/2025 08:14:08 05/09/2005/15/2025 TOXAS SURE FLEX 19, UR desmethyldia zepam Not Detect ed NG/mg _crea t Not Available [facility] ([facility]) [address] [place], [address], 05/15/2025 08:14:08 05/09/2005/15/2025 TOXAS SURE FLEX 19, UR oxazepam Not Detect ed NG/mg _crea t Not Available [facility] ([facility]) [address] [place], [address], 05/15/2025 08:14:08 05/09/2005/15/2025 TOXAS SURE FLEX 19, [...] neftaly Oxaze neftaly: None Not Available [facility] ([facility]) [address] [place], [address], 05/15/2025 08:14:08 05/09/2005/15/2025 TOXAS SURE FLEX 19, UR alprazolam Not Detect ed NG/mg _crea t Not Available [facility] ([facility]) [address] [place], [address], 05/15/2025 08:14:08 05/09/2005/15/2025 TOXAS SURE FLEX 19, UR alpha-hydrox yalprazolam Not Detect ed NG/mg _crea t Not Available [facility] ([facility]) [address] [place], [address], 05/15/2025 08:14:08 05/09/2005/15/2025 TOXAS SURE FLEX 19, UR desalkylflur azepam Not Detect ed NG/mg _crea t Not Available [facility] ([facility]) [address] [place], [address], 05/15/2025 08:14:08 05/09/2005/15/2025 TOXAS SURE FLEX 19, UR lorazepam Not Detect ed NG/mg _crea t Not Available [facility] ([facility]) [address] [place], [address], 05/15/2025 08:14:08 05/09/2005/15/2025 TOXAS SURE FLEX 19, UR alpha-hydrox ytriazolam Not Detect ed NG/mg _crea t Not Available [facility] ([facility]) [address] [place], [address], 05/15/2025 08:14:08 05/09/20 25 05/15/2025 TOXAS SURE FLEX 19, UR clonazepam Not Detect ed NG/mg _crea t Not Available [facility] ([facility]) [address] [place], [address], 05/15/2025 08:14:08 05/09/2005/15/2025 TOXAS SURE FLEX 19, UR 7-aminoclona zepam Not Detect ed NG/mg _crea t Not Available [facility] ([facility]) [address] [place], [address], 05/15/2025 08:14:08 05/09/2005/15/2025 TOXAS SURE FLEX 19, UR midazolam Not Detect ed NG/mg _crea t Not Available [facility] ([facility]) [address] [place], [address], 05/15/2025 08:14:08 05/09/2005/15/2025 TOXAS SURE FLEX 19, UR alpha-hydrox ymidazolam Not Detect ed NG/mg _crea t Not Available [facility] ([facility]) [address] [place], [address], 05/15/2025 08:14:08 05/09/2005/15/2025 TOXAS SURE FLEX 19, UR flunitrazepa m Not Detect ed NG/mg _crea t Not Available [facility] ([facility]) [address] [place], [address], 05/15/2025 08:14:08 05/09/2005/15/2025 TOXAS SURE FLEX 19, UR desmethylflu nitrazepam Not Detect ed NG/mg _crea t Not Available [facility] ([facility]) [address] [place], [address], 05/15/2025 08:14:08 05/09/2005/15/2025 TOXAS SURE FLEX 19, UR cocaine metabolite ia Negati ve NG/mL cutoff :150 Not Available [facility] ([facility]) [address] [place], [address], 05/15/2025 08:14:08 05/09/20 25 05/15/2025 TOXAS SURE FLEX 19, UR ethanol biomarkers ia COMMEN T NG/mL cutoff :500 Furth er testi ng indic ated Not Available [facility] ([facility]) [address] [place], [address], 05/15/2025 08:14:08 05/09/2005/15/2025 TOXAS SURE FLEX 19, UR cannabinoids ia Negati ve NG/mL cutoff :20 Not Available [facility] ([facility]) [address] [place], [address], 05/15/2025 08:14:08 05/09/20 25 05/15/2025 TOXAS SURE FLEX 19, UR 6-acetylmorp ken ia Negati ve NG/mL cutoff :10 Not Available [facility] ([facility]) [address] [place], [address], 05/15/2025 08:14:08 05/09/20 25 05/15/2025 TOXAS SURE FLEX 19, UR opiate class ia Negati ve NG/mL cutoff :100 Not Available [facility] ([facility]) [address] [place], [address], 05/15/2025 08:14:08 05/09/2005/15/2025 TOXAS SURE FLEX 19, UR oxycodone class ia Negati ve NG/mL cutoff :100 Not Available [facility] ([facility]) [address] [place], [address], 05/15/2025 08:14:08 05/09/20 25 05/15/2025 TOXAS SURE FLEX 19, UR methadone ia Negati ve NG/mL cutoff :100 Not Available [facility] ([facility]) [address] [place], [address], 05/15/2025 08:14:08 05/09/2005/15/2025 TOXAS SURE FLEX 19, UR methadone mtb ia Negati ve NG/mL cutoff :100 Not Available [facility] ([facility]) [address] [place], [address], 05/15/2025 08:14:08 05/09/2005/15/2025 TOXAS SURE FLEX 19, UR buprenorphin e ia Negati ve NG/mL cutoff :5.0 Not Available [facility] ([facility]) [address] [place], [address], 05/15/2025 08:14:08 05/09/2005/15/2025 TOXAS SURE FLEX 19, UR fentanyl ia Negati ve NG/mL cutoff :2.0 Not Available [facility] ([facility]) [address] [place], [address], 05/15/2025 08:14:08 05/09/2005/15/2025 TOXAS SURE FLEX 19, UR tapentadol ia Negati ve NG/mL cutoff :200 Not Available [facility] ([facility] [address] [place], [address], 05/15/2025 08:14:08 05/09/2005/15/2025 TOXAS SURE FLEX 19, UR propoxyphene ia Negati ve NG/mL cutoff :300 Not Available [facility] ([facility] [address] [place], [address], 05/15/2025 08:14:08 05/09/2005/15/2025 TOXAS SURE FLEX 19, UR tramadol ia Negati ve NG/mL cutoff :200 Not Available [facility] ([facility] [address] [place], [address], 05/15/2025 08:14:08 05/09/2005/15/2025 TOXAS SURE FLEX 19, UR methylphenid ate ia Negati ve NG/mL cutoff :100 Not Available [facility] ([facility]) [address] [place], [address], 05/15/2025 08:14:08 05/09/2005/15/2025 TOXAS SURE FLEX 19, UR barbiturates ia Negati ve NG/mL cutoff :200 Not Available [facility] ([facility]) [address] [place], [address], 05/15/2025 08:14:08 05/09/2005/15/2025 TOXAS SURE FLEX 19, UR phencyclidin e ia Negati ve NG/mL cutoff :25 Not Available [facility] ([facility]) [address] [place], [address], 05/15/2025 08:14:08 05/09/20 25 05/15/2025 TOXAS SURE FLEX 19, UR gabapentin ia Negati ve ug/mL cutoff :1.0 Not Available [facility] ([facility]) [address] [place], [address], 05/15/2025 08:14:08 05/09/2005/15/2025 TOXAS SURE FLEX 19, UR anticonvulsa nts Negati ve Not Available [facility] ([facility]) [address] [place], [address], 05/15/2025 08:14:08 05/09/2005/15/2025 TOXAS SURE FLEX 19, UR pregabalin Not Detect ed Not Available [facility] ([facility]) [address] [place], [address], 05/15/2025 08:14:08 05/09/20 25 05/15/2025 TOXAS SURE FLEX 19, UR carisoprodol ia Negati ve NG/mL cutoff :100 Not Available [facility] ([facility] [address] [place], [address], 05/15/2025 08:14:08 05/09/2005/15/2025 BRIE OL BIOMA RKERS , [place], UR RFX ethanol biomarkers +POSIT YFN+ Not Available [facility] ([facility]) [address] [place], [address], 05/15/2025 08:14:09 05/09/2005/15/2025 BRIE OL BIOMA RKERS , [place], UR RFX ethyl glucuronide 737 NG/mg _crea t Not Available [facility] ([facility]) [address] [place], [address], 05/15/2025 08:14:09 05/09/2005/15/2025 BRIE OL BIOMA RKERS , [place], UR RFX ethyl sulfate 336 NG/mg _crea t Not Available [facility] ([facility]) [address] [place], [address], 05/15/2025 08:14:09 Result Notes None recorded. Problems Name Problem SNOMED Code Status Onset Date Resolution Date Notes Provider Name and Address Organization Details Recorded Time Gastroesoph ageal reflux disease without esophagitis 298048564 Active 2024 GONZALEZ Romero [address] [place] [address], [phone], [employer] 13:40:34 Anxiety 25724648 Active 2024 GONZALEZ Romero [address] [place] [address], [address], [employer] 14:59:04 Obese class II 6606040642419 05 Active 2024 GONZALEZ Romero [address] [place] [address], [address], [employer] 10:43:27 Problem Notes None recorded. Procedures Surgical History Date Name Laterality Status Provider Name and Address Organization Details Recorded Time 5 Tubal Ligation completed [employer] 12/20/2024 13:12:45 4 Date of Last Pap Smear completed [employer] 12/20/2024 13:12:44 Imaging Results None recorded. Procedure Notes None recorded. Medical Equipment None Reported. Allergies Allergen ID Allergen Name Allergen Category Reaction Reaction Severity Criticality Documentation Date Start Date Code Code System Note Provider Name and Address Organization Details Recorded Time 78999 Zithromax medicatio n itching nausea rash vomiting Not available Not available Not available Not available Not available 12/20/20242015 4 RxNorm Emilia [facility], [employer] 13:12:43 Medications Name Sig Start Date Stop [...] Available Not Available Vitals Date Recorded Body weight Body mass index (BMI) Body height Body temperature Heart rate Oxygen saturation Oxygen saturation in Arterial blood by Pulse oximetry Systolic And Diastolic Provider Name and Address Organization Details Last Updated DateTime 5 10261.2 5 g 34.5 kg/m2 154.94 cm 97.9 [degF] 100 /min 97 % 97 % 110/74 mm[Hg] [employer] 5 13:17:34 Date Recorded Body height Body mass index (BMI) Body weight Body temperature Heart rate Oxygen saturation Oxygen saturation in Arterial blood by Pulse oximetry Systolic And Diastolic Provider Name and Address Organization Details Last Updated DateTime 5 154.94 cm 35.1 kg/m2 31638.7 4 g 97.7 [degF] 92 /min 96 % 96 % 120/80 mm[Hg] [employer] 5 14:44:42 Date Recorded Body height Body mass index (BMI) Body weight Oxygen saturation Oxygen saturation in Arterial blood by Pulse oximetry Heart rate Body temperature Systolic And Diastolic Provider Name and Address Organization Details Last Updated DateTime 5 154.94 cm 34.2 kg/m2 51677.5 g 98 % 98 % 90 /min 98.2 [degF] 120/84 mm[Hg] Emilia Thompson [employer] 13:18:56 Social History Question Answer Notes LastModified by Organizat ion Details LastModified Time Tobacco Smoking Status Never Smoker Emilia de santiago, [employer] 12/20/2024 13:19:12 Do You Have An Advance [...] Information not available 06/17/2025 What Type Of Medical Office Clerk Do You Use? [employer] Information not available [...] Or The Highest Degree You Have Received? NL77070-8 Information not available 12/20/2024 Who Is Your [...] Do You Have A Medical Power Of Winchman/Crane Operator? No Information not available 12/20/2024 What Was [...] anxious, or unable to sleep at night)? [id number] Information not available 06/17/2025 Do you have [...] Response Allergies (Food, seasonal, environmental ) Y Anxiety Disorder Y Hospitalizations N Acid Reflux (GERD) Y Emergency room visit since last appointm ent. N GI Problems Y Depression Y Gynecological History Statement/Question Response Abnormal Pap [...] adolescent or pediatric 8 completed Not Available [facility] 06/17/2025 13:11:29 IPV 8 completed Not Available [facility] 06/17/2025 13:11:29 Hib-Hep B 8 completed Not Available [facility] 06/17/2025 13:11:29 DTaP, unspecified formulation 8 completed Not Available [facility] 06/17/2025 13:11:29 DTaP, unspecified formulation 8 completed Not Available [facility] 06/17/2025 13:11:29 IPV 8 completed Not Available [facility] 06/17/2025 13:11:29 Hib, unspecified formulation 8 completed Not Available [facility] 06/17/2025 13:11:29 DTaP, unspecified formulation 9 completed Not Available [facility] 06/17/2025 13:11:29 OPV, trivalent 9 completed Not Available [facility] 06/17/2025 13:11:29 varicella 9 completed Not Available [facility] 06/17/2025 13:11:29 Hib-Hep B 9 completed Not Available [facility] 06/17/2025 13:11:29 DTaP, unspecified formulation 9 completed Not Available [facility] 06/17/2025 13:11:29 MMR 9 completed Not Available [facility] 06/17/2025 13:11:29 DTaP, unspecified formulation 3 completed Not Available [facility] 06/17/2025 13:11:29 MMR 3 completed Not Available [facility] 06/17/2025 13:11:29 IPV 3 completed Not Available [facility] 06/17/2025 13:11:29 Tdap 9 completed Not Available [facility] 06/17/2025 13:11:29 Influenza, split virus, quadrivalent, preservative 7 completed Not Available [facility] 06/17/2025 13:11:29 Tdap 2 completed Not Available [facility] 06/17/2025 13:11:29 Influenza, split virus, trivalent, PF 4 completed Not Available [facility] 06/17/2025 13:11:29 Tdap 4 completed Not Available [facility] 06/17/2025 13:11:29 RSV, bivalent, protein subunit RSVpreF, diluent reconstituted, 0.5 mL, PF 4 completed Not Available [facility] 06/17/2025 13:11:29 Past Encounters Encounter ID Performer Location Encounter Start Date Encounter Closed Date Diagnosis/Indication Diagnosis SNOMED-CT Code Diagnosis ICD10 Code Diagnosis IMO Codes Diagnosis Note [id number] GONZALEZ Romero [address] [address] 12/20/2024 13:06:12 12/20/2024 13:29:37 Gastroesophageal reflux disease without esophagitis 195600122 K21.9 672038 [id number] GONZALEZ Romero [address] [address] 05/09/2025 14:38:22 05/09/2025 14:58:29 Long-term current use of drug therapy 309884232 Z79.899 39398020 Anxiety 59476733 F41.9 15128 Body mass index 30+ - obesity 945877267 Z68.35 435183 [id number] GONZALEZ Romero [address] [address] 06/17/2025 13:07:34 06/17/2025 13:39:04 Body mass index 30+ - obesity 976918022 Z68.35 Anxiety 93611723 F41.9 42185 Improving with sertraline Health Concerns Section Related Observation LastModified by Organization Detai ls LastModified Time None Recorded Concern Status LastModified by Organization Details LastModified Time None Recorded Advance Directives Directive N: Payers Insurance Date Sequence Insurance Name Policy Number Policy Joy Covered Member ID Joy Member ID Guarantor Name 06/15/2025 1 CLYDEMARILUZ [facility] (MEDICAID HMO) Giulia Booth [id number] Giulia Booth Notes Date Note Type Note Provider Name and Address Organization Details Recorded Time 12/20/2024 text/html ROS as noted in the [facility] Patient presents to establish care at [facility].History of GERD. Needs refills on Protonix. GONZALEZ Romero [address] [place], [address], [employer]. 12/20/2024 14:36:42 05/09/2025 text/html ROS as noted in the HPI Patient presents to establish care. Needs refills on Zoloft. Previously prescribed by OB. Would like to try Adipex. She is 9 months post . Exercising, eating clean and weight is not budging. GONZALEZ Romero [address] [place], [address], [employer] 05/09/2025 15:10:51 06/17/2025 text/html ROS as noted in the [facility] Patient presents for followupHas lost 5 pounds with AdipexStates anxiety is better with sertraline. Trying to do better about remembering to take it daily. GONZALEZ Romero [address] [place] [address], [address], [employer] 06/17/2025 13:36:46 OBGyn Episode No OBEpisode recorded.
--- OUTSIDE RECORDS SUMMARY | 2025-06-26 07:51 | XMS_ITS | Data Portability ---
Author Organization [facility], HOME/INTERMEDIATE/IND Address [address] [place] [address] Assessment No assessment recorded. Plan of Treatment Reminders Order Date Submit Date Provider Last Modified By Organization Details Last Modified Time Details Appointments None recorded. Lab None recorded. Referral None recorded. Procedures None recorded. Surgeries None recorded. Imaging None recorded. Medication Orders SEMAGLUTID E COMPOUNDED 2023 024 [email or web address] [address] [facility] [employer] [facility] #[id number], [address], [phone], 4 15:53:22 ondansetro n 4 mg disintegra ting tablet 2023 024 ATHENAFAX [facility] #[id number], 629 [facility] [address], [place], [phone], 4 20:21:13 Patient TargetsNo targets recorded. Patient InstructionsNo instructions recorded. Reason for Referral None Reported. Medical Equipment None Reported. Allergies Allergen ID Allergen Name Allergen Category Reaction Reaction Severity Criticality Documentation Date Start Date Code Code System Note Provider Name and Address Organization Details Recorded Time 1861 azithromy siva medicatio n hives Not available low 12/13/202315682 RxNorm [facility] 4 15:21:56 Medications Name Sig Start Date Stop Date Status Note LastModified by Organization Details LastModified Time SEMAGLUTIDE COMPOUNDED 10 units 2023 active Not Available Not Available Not Avai lable SEMAGLUTIDE COMPOUNDED 10 units subq left upper arm by [facility] 2023 active Not Available Not Available Not Avai lable SEMAGLUTIDE COMPOUNDED 10 units subq upper l arm by [facility] 2023 active Not Available Not Available Not Avai lable pantoprazole 20 mg tablet,delay ed release Take 2 tablets every day by oral route. active Not Available Not Available No t Available ondansetron 4 mg disintegrati ng tablet Place 1 tablet every 4-6 hours by translingua l route. 2023 active Not Available Not Available Not Avai lable Creon active Not Available Not Availa ble Not Available Vitals Date Recorded Body height Heart rate Respiratory rate Body temperature Body mass index (BMI) Body weight Oxygen saturation Oxygen saturation in Arterial blood by Pulse oximetry Systolic And Diastolic Provider Name and Address Organization Details Last Updated DateTime 154.94 cm 94 /min 18 /min 98 [degF] 31.2 kg/m2 59829.4 6 g 98 % 98 % 110/68 mm[Hg] Nenita Walton [facility] 15:20:20 Social History None recorded. Functional Status None recorded. Mental Status None recorded. Family History Nothing Reported. Medical History No medical history recorded. Gynecological HistoryNo gynecological history recorded. Obstetrics History GPAL:G 0 P 0 0 0 0 Immunizations Vaccine Type Date Status Note Provider Nam e and Address Organization Details Recorded Time Influenza, split virus, quadrivalent, preservative 7 completed Nenita de santiago [facility] 12/13/2023 15:20:44 Hib, unspecified formulation 8 completed Nenita de santiago [facility] 12/13/2023 15:20:44 Hib-Hep B 9 [facility] 15:20:44 Hib-Hep B 8 completed Nenita de santiago [facility] 12/13/2023 15:20:44 IPV 3 completed Nenita de santiago [facility] 12/13/2023 15:20:44 IPV 8 sherwin de santiago [facility] 12/13/2023 15:20:44 IPV 8 completed Nenita Anton null, [facility] 12/13/2023 15:20:44 MMR 3 completed Nenita Anton null, [facility] 12/13/2023 15:20:44 MMR 9 completed Nenita Anton null, [facility] - [facility] 12/13/2023 15:20:44 Tdap 2 completed Nenita Anton null, [facility] - [facility] 12/13/2023 15:20:44 Tdap 9 completed Nenita Anton null, [facility] - [facility] 12/13/2023 15:20:44 varicella 9 completed Nenita Anton null, [place] - [facility] 12/13/2023 15:20:44 OPV, trivalent 9 completed Nenita Anton null, [facility] 12/13/2023 15:20:44 Hep B, adolescent or pediatric 8 completed Nenita Anton null, [facility] - [facility] 12/13/2023 15:20:44 DTaP, unspecified formulation 9 completed Nenita Anton null, [facility] - [facility] 12/13/2023 15:20:44 DTaP, unspecified formulation 3 completed Nenita Anton null, [facility] - [facility] 12/13/2023 15:20:44 DTaP, unspecified formulation 8 completed Nenita Anton null, [facility] - [facility] 12/13/2023 15:20:44 DTaP, unspecified formulation 9 completed Nenita Anton null, [facility] - [facility] 12/13/2023 15:20:44 DTaP, unspecified formulation 8 completed Nenita Anton null, [facility] - [facility] 12/13/2023 15:20:44 Past Encounters Encounter ID Performer Location Encounter Start Date Encounter Closed Date Diagnosis/Indication Diagnosis SNOMED-CT Code Diagnosis ICD10 Code Diagnosis IMO Codes Diagnosis Note [id number] GURPREET BULLARD APRN Main Office [address] [place] [id number] 12/13/2023 15:04:13 12/13/2023 15:55:09 Obesity 731622715 E66.9 Advised patient that working to achieve a healthy body weight is very important for group home health and prevention of diseasePat ient followed by PCP, had labwork recently and was told it was normal. Will send results.St art semaglutid e 10 units once weekly.Dis cussed medication use and potential side effects including n/v, constipati on, diarrhea and very rarely pancreatit is.Denies history of MEN syndrome.P atient counselled and understand s medication used is a compounded form of GLP-1 sourced from a reputable [facility] pharmacy. The brand name GLP-1 is not available and not a reasonable option at this time due to cost. Patient understand s the potential risks involved in using compounded medication s. Patient agrees to follow up for close monitoring for response and adjustment s of treatment plan.Goal 130lbGiven goal of 30min of exercise 5x/weekDis cussed calorie restrictio n and given daily calorie goal based on current age, weight and activity level.Disc ussed other weight loss interventi ons including weight loss medicine and/or weight loss surgery. Attestatio n: I, Will Marquez MD, discussed case with Gurpreet Bullard APRN. I agree with assessment and plan as outlined above. Health Concerns Section Related Observation LastModified by Organization Detai ls LastModified Time None Recorded Concern Status LastModified by Organization Details LastModified Time None Recorded Advance Directives Directive None Recorded Payers Insurance Date Sequence Insurance Name Policy Number Policy Joy Covered Member ID Joy Member ID Guarantor Name 12/13/2023 1 *SELF PAY* Rhonda Booth Notes Date Note Type Note Provider Name and Address Organization Details Recorded Time 12/13/2023 text/html pt here fort wt loss consultation Will Marquez MD [address] [place] [address], [phone], [place] MD - [facility] 12/19/2023 13:15:48 OBGyn Episode No OBEpisode recorded.
[2025-06-26 08:32] LABS: Hematocrit 38.9 % (37.0-47.0); Hemoglobin 13.1 g/dL (12.2-16.2); Immature Granulocytes % 0.5 %; Mean Corpuscular HGB Conc 33.7 g/dL (31.8-35.4); Mean Corpuscular Hemoglobin 29.5 pg (27.0-31.2); Mean Corpuscular Volume 87.6 fl (81-99); Nucleated Red Blood Cells % 0 %; Platelet Count 349 K/mm3 (142-424); Red Blood Count 4.44 M/mm3 (4.20-5.40); Red Cell Distribution Width-SD 40.1 fL; White Blood Count 11.0 K/mm3 (4.8-10.8)
[2025-06-26 08:35] LABS: Microscopic, Urine URINE MICROSCOPIC (MICROSCOPIC)
[2025-06-26 08:38] LABS: Alanine Aminotransferase 20 U/L (12-78); Albumin Level 4.7 g/dl (3.5-5.0); Albumin/Globulin Ratio 1.3 (1.1-1.8); Alkaline Phosphatase 65 U/L (38-126); Anion Gap 11.4 mEq/L (5-15); Aspartate Amino Transferase 32 U/L (14-36); Bilirubin,Total 0.6 mg/dl (0.2-1.3); Blood Urea Nitrogen 17 mg/dl (7-17); Calcium 9.6 mg/dl (8.4-10.2); Carbon Dioxide 26 mmol/L (22.0-30.0); Chloride 102 mmol/L (98-107); Creatinine Clearance Estimated 121 mL/min (50-200); Creatinine,Serum 0.90 mg/dl (0.52-1.04); Estimated Glomerular Filt Rate 75 ml/min (>60); GFR (African American) 91 ML/MIN (>60); Globulin 3.6 g/dL (1.3-3.2); Glucose 93 mg/dl (74-100); Lipase 78 U/L (23-300); Potassium 4.4 mmoL/L (3.5-5.1); Sodium 135 mmol/L (136-145); Total Protein,Serum 8.3 g/dl (6.3-8.2)
--- NOTE | 2025-06-26 08:40 | CT_ITS ---
FINAL REPORT TECHNIQUE: Thin section axial images are obtained through the abdomen and pelvis after intravenous contrast. Reconstruction images were obtained from the axial data. Exam was performed using dose reduction techniques. This study was performed with techniques to keep radiation doses as low as reasonably achievable (ALARA). Individualized dose reduction techniques using automated exposure control or adjustment of mA and/or kV according to the patient's size were employed. CLINICAL HISTORY: LLQ abdominal tenderness COMPARISON: None FINDINGS: LUNG BASES: Lung bases are clear. Heart size is normal. LIVER: Homogeneous. No focal lesion. GALLBLADDER/BILIARY SYSTEM: Gallbladder is present. No gallstones. No biliary dilatation. SPLEEN: Unremarkable. PANCREAS: Unremarkable. ADRENALS: Unremarkable. KIDNEYS/URETERS/BLADDER: No hydronephrosis, renal mass, or renal stone. Unremarkable urinary bladder. GI TRACT: No small bowel obstruction or dilatation. Normal appendix. There is mild fluid present in the distal cecum, with segmental areas of colonic wall thickening and mild pericolic inflammatory changes particularly along the descending colon, favor colitis. PELVIC ORGANS: The uterus is slightly lobular, which may be secondary to uterine fibroids. Physiologic changes are present in the ovaries. LYMPH NODES/RETROPERITONEUM/MESENTERY: No lymphadenopathy. No abdominal aortic aneurysm. ABDOMINAL WALL: The abdominal wall is intact. FREE FLUID: Physiologic free fluid is present in the pelvis. BONES: No acute osseous abnormality. IMPRESSION: Segmental areas of colonic wall thickening, with mild pericolic inflammatory change along the descending colon, favor infectious or inflammatory colitis. Reviewed, Interpreted and Dictated by Domenica Mejia MD Transcribed by Leti Shirley Authenticated and [facility]
--- NOTE | 2025-06-26 08:52 | ED_ITS ---
Discharge Plan Disposition Patient Disposition: Home, Self-Care Condition: Good Prescriptions Prescriptions: New dicyclomine 20 mg tablet 20 mg PO BID Qty: 20 0RF ondansetron 4 mg tablet,disintegrating 4 mg PO DAILY 5 Days Qty: 30 0RF No Action Creon 36,000-114,000- 180,000 unit capsule,delayed release(DR/EC) PO pantoprazole 40 mg tablet,delayed release (DR/EC) See Rx Instructions .ROUTE .COMPLEX Qty: 90 0RF Dose Instruction: TAKE 1 TABLET BY MOUTH EVERY DAY Rx Instructions: TAKE 1 TABLET BY MOUTH EVERY DAY Referrals Follow up/Referrals: Belle Caldera PA [Primary Care Provider, Medical] - See instructions Activity Restrictions/Add. Instructions Additional Instructions/Restrictions: Take the Bentyl and Zofran as needed for symptom control. Eat and drink a bland diet over the next few days. Return to the emergency department if you have acute worsening pain, unable to tolerate oral intake or if you have any other acute concerns. Clinical Impressions Clinical Impression: Colitis Stand Alone Forms Stand Alone Forms: Work/School Release Instructions Patient Instructions: DI for Acute Abdominal Pain Print Language Print Language: Czech Discharge ED Provider: Stefania Singh General Adult HPI General Chief complaint: Abdominal Pain Stated complaint: pain on Lt and Rt side, diarrhea Time Seen by Provider: 06/26/25 08:38 Mode of Arrival: Ambulatory Source of Information: Patient Description of Symptoms (Recalled from ER Triage Doc. by RN): pt is here for right flank pain dull ache that started on monday- monday, then on monday it went to the left side and became sharp stabbing pain. pt is has had nausea, only previous tubal for abd surgeries hx History of Present Illness HPI narrative: Patient is a 25-year-old female with a past medical history of tubal ligation, issues with her pancreas that she is post to take Creon for who presents to the emergency department for left-sided abdominal pain. Patient states that she had right-sided abdominal pain on Monday and then on Monday her pain changed to the left side. Patient states that it is sharp stabbing in nature but currently constant. Patient has had nausea no vomiting. Patient denies any fevers. Patient denies any chest pain or shortness of breath. Patient not taking any medications. Patient has not had any recent surgeries. Related Data Home Medications ?Medication ?Instructions ?Recorded ?Confirmed [id number]-[id number]-dxqzank cap PO 09/15/23 08/07/24 (pork)36,000-114,000-180k unit capsule,del rel (Creon) Previous Rx's ?Medication ?Instructions ?Recorded pantoprazole 40 mg tablet,delayed See Rx Instructions .Route 12/15/23 release .COMPLEX #90 tabs dicyclomine 20 mg tablet 20 mg PO BID #20 tabs ondansetron 4 mg disintegrating 4 mg PO DAILY 5 days # 30 tabs 06/26/25 tablet Allergies Allergy/AdvReac Type Severity Reaction Status Date / Time azithromycin (From ZITHROMAX) Allergy Mild Rash Verified 08/07/24 11:32 lisinopril AdvReac Mild cough Verified 08/07/24 11:14 PFSH [facility] Disclaimer: The information contained in this section may have been updated after the patient was seen, as this information can be updated by other users. Medical History GERD (gastroesophageal reflux disease) Hypertension Surgical History No significant past surgical history Family History Other No significant family history Social History Smoking Status: Current every day smoker tobacco type: e-cigarettes alcohol intake: never substance use type: marijuana current occupational status: other Travel in the last 8 weeks?: None household members: family housing: house number of children: 2 Have you lived/traveled outside [place] in past 30 days?: No Contact w/someone who lives/traveled outside US past 30 days?: No Exposure to someone with infectious disease in past 14 days?: No Do you have a fever (greater than 100.4 F or 38 C)?: No Have you tested positive for COVID-19?: No Exposed to someone with COVID-19 in past 14 days?: No Do you have a sore throat?: No Do you have a cough?: No Do you have any weakness?: No Do you have any diarrhea?: Yes Are you experiencing any unusual bleeding?: No Do you have any muscle aches/pain?: No Do you have any abdominal pain?: No Are you experiencing loss of taste or smell?: No Other Medical History Have you received the Flu Vaccine for this season: No Have you received the Pneumonia Vaccine: No ROS Obtained: Yes All systems reviewed & no additional complaints except as documented and Yes Systems reviewed as appropriate & no additional complaints except as documented Physical Exam General General appearance: alert and in no apparent distress Head Head exam: atraumatic, normocephalic and normal inspection Eye Eye exam: Present normal appearance, PERRL and EOMI; Absent scleral icterus ENT ENT exam: Present normal exam and normal external ear exam Neck Neck exam: Present normal inspection and full ROM Chest Chest inspection: Present normal inspection and symmetric chest wall rise Respiratory Respiratory exam: Present normal lung sounds bilaterally; Absent respiratory distress or wheezes Cardiovascular Cardiovascular exam: Present regular rate, normal rhythm and normal heart sounds Abdominal Exam Abdominal exam: Present soft, distention and tenderness (L flank and LLQ tenderness); Absent guarding or rebound Extremities Exam Extremities exam: Present normal inspection and full ROM Back Exam Back exam: Present normal inspection and full ROM Neurological Exam Neurological exam: Present alert and oriented X3 Psychiatric Psychiatric exam: Present normal affect and normal mood Skin Skin exam: Present warm and dry Medical Decision Making Medical Records Medical records reviewed: Yes I reviewed the patient's medical records. Screening: Per USPSTF and CDC recommendations, given the prevalence of disease in our region, it is our hospital?s policy to screen for HIV and viral Hepatitis for all patients aged 18 and over and those with ongoing risk factors. Mark Inquiry Pt receiving controlled substance: No Vital Signs: 06/26/25 07:42 06/26/25 07:47 06/26/25 07:57 Temperature 98.6 F Temperature Source Oral Pulse Rate 102 H 100 H Pulse Rate [Left Radial] 108 H Respiratory Rate 20 Blood Pressure 133/95 H 119/85 Blood Pressure [Right Arm] 133/95 H Blood Pressure Mean [Right Arm] 107 02 Sat by Pulse Oximetry 99 99 98 Oxygen Delivery Method Room Air 06/26/25 08:01 06/26/25 08:06 06/26/25 08:09 Temperature Temperature Source Pulse Rate 90 56 L 86 Pulse Rate [Left Radial] Respiratory Rate Blood Pressure 145/92 H 125/99 H 154/88 H Blood Pressure [Right Arm] Blood Pressure Mean [Right Arm] 02 Sat by Pulse Oximetry 95 95 98 Oxygen Delivery Method 06/26/25 08:12 06/26/25 08:15 06/26/25 08:19 Temperature Temperature Source Pulse Rate 96 H 95 H 85 Pulse Rate [Left Radial] Respiratory Rate Blood Pressure 125/103 H 120/76 137/68 Blood Pressure [Right Arm] Blood Pressure Mean [Right Arm] 02 Sat by Pulse Oximetry 99 98 98 Oxygen Delivery Method 06/26/25 08:21 06/26/25 08:33 06/26/25 08:39 Temperature Temperature Source Pulse Rate 88 91 H 71 Pulse Rate [Left Radial] Respiratory Rate Blood Pressure 133/108 H 111/73 128/89 Blood Pressure [Right Arm] Blood Pressure Mean [Right Arm] 02 Sat by Pulse Oximetry 97 99 99 Oxygen Delivery Method 06/26/25 08:42 06/26/25 08:45 06/26/25 08:51 Temperature Temperature Source Pulse Rate 87 88 73 Pulse Rate [Left Radial] Respiratory Rate Blood Pressure 115/87 122/80 113/78 Blood Pressure [Right Arm] Blood Pressure Mean [Right Arm] 02 Sat by Pulse Oximetry 96 97 97 Oxygen Delivery Method 06/26/25 08:54 06/26/25 08:57 06/26/25 09:00 Temperature Temperature Source Pulse Rate 89 88 80 Pulse Rate [Left Radial] Respiratory Rate Blood Pressure 116/77 113/81 116/76 Blood Pressure [Right Arm] Blood Pressure Mean [Right Arm] 02 Sat by Pulse Oximetry 98 98 97 Oxygen Delivery Method 06/26/25 09:03 06/26/25 09:09 06/26/25 09:19 Temperature Temperature Source Pulse Rate 72 85 83 Pulse Rate [Left Radial] Respiratory Rate Blood Pressure 129/89 115/82 125/86 Blood Pressure [Right Arm] Blood Pressure Mean [Right Arm] 02 Sat by Pulse Oximetry 98 97 99 Oxygen Delivery Method 06/26/25 09:21 06/26/25 09:24 06/26/25 09:27 Temperature Temperature Source Pulse Rate 76 77 79 Pulse Rate [Left Radial] Respiratory Rate Blood Pressure 124/83 122/84 117/85 Blood Pressure [Right Arm] Blood Pressure Mean [Right Arm] 02 Sat by Pulse Oximetry 98 99 99 Oxygen Delivery Method 06/26/25 09:30 06/26/25 09:33 06/26/25 09:36 Temperature Temperature Source Pulse Rate 85 80 77 Pulse Rate [Left Radial] Respiratory Rate Blood Pressure 132/92 H 125/86 141/98 H Blood Pressure [Right Arm] Blood Pressure Mean [Right Arm] 02 Sat by Pulse Oximetry 99 100 100 Oxygen Delivery Method 06/26/25 11:44 Temperature 98.3 F Temperature Source Pulse Rate 77 Pulse Rate [Left Radial] Respiratory Rate 20 Blood Pressure 141/98 H Blood Pressure [Right Arm] Blood Pressure Mean [Right Arm] 02 Sat by Pulse Oximetry Oxygen Delivery Method Room Air Lab Data Lab results reviewed: Yes I reviewed the patient's lab results. Lab Results 06/26/25 07:55: WBC 11.0 H, RBC 4.44, Hgb 13.1, Hct 38.9, MCV 87.6, MCH 29.5, MCHC 33.7, RDW 12.6, Plt Count 349, MPV 11.0 H, Neut % (Auto) 62.8, Lymph % (Auto) 28.2, Carlton % (Auto) 6.0, Eos % (Auto) 2.0, Baso % (Auto) 0.5, Neut # (Auto) 6.9, Lymph # (Auto) 3.1, Carlton # (Auto) 0.7, Eos # (Auto) 0.2, Baso # (Auto) 0.1, Sodium 135 L, Potassium 4.4, Chloride 102, Carbon Dioxide 26, Anion Gap 11.4, BUN 17, Creatinine 0.90, Estimated Creat Clear 121, Estimated GFR 75, Est GFR ( Amer) 91, Glucose 93, Lactate 1.0, Calcium 9.6, Total Bilirubin 0.6, AST 32, ALT 20, Alkaline Phosphatase 65, Total Protein 8.3 H, Albumin 4.7, Globulin 3.6 H, Albumin/Globulin Ratio 1.3, Lipase 78, Serum HCG, Qual Negative 06/26/25 08:30: Urine Color Yellow, Urine Appearance Clear, Urine pH 6.0, Ur Specific [place] 1.025, Urine Protein Negative, Urine Glucose (UA) Negative, Urine Ketones Negative, Urine Blood Negative, Urine Nitrate Negative, Urine Bilirubin Negative, Urine Urobilinogen 0.2, Ur Leukocyte Esterase Negative, Urine RBC None, Urine WBC None, Ur Squamous Epith Cells 10-20, Urine Bacteria 1+, Urine HCG, Qual Negative 06/26/25 07:55 06/26/25 07:55 Orders (Tests/Meds): ED MEDICATIONS Discontinued Medications Generic Name Dose Route Start Last Admin Trade Name Rabia PRN Reason Stop Dose Admin Dicyclomine HCl 20 mg 06/26/25 08:42 06/26/25 08:57 Dicyclomine 10mg Capsule PO 06/26/25 08:43 20 mg ONCE ONE Administration Iopamidol 75 ml 06/26/25 09:14 06/26/25 09:15 Iopamidol-370 (76%);100ml Bottle IV 06/26/25 09:15 75 ml ONCE ONE Administration Ketorolac Tromethamine 30 mg 06/26/25 08:42 06/26/25 08:57 Ketorolac 30mg/Ml Vial IV 06/26/25 08:43 30 mg ONCE ONE Administration Ondansetron HCl 4 mg 06/26/25 08:42 06/26/25 08:57 Ondansetron 4mg/2ml Vial IV 06/26/25 08:43 4 mg ONCE ONE Administration Sodium Chloride 10 ml 06/26/25 09:14 06/26/25 09:15 Sodium Chloride 0.9% 10ml Syr (Rad Only) IV 06/26/25 09:15 10 ml ONCE ONE Administration ORDERS Category Date Time Status CT abdomen pelvis w con Stat Cat Scan 06/26/25 08:40 Completed Complete Blood Count Auto Diff Stat Lab 06/26/25 07:55 Completed Comprehensive Metabolic Panel Stat Lab 06/26/25 07:55 Completed HCG Qualitative, Serum Stat Lab 06/26/25 07:55 Completed Lactic Acid Stat Lab 06/26/25 07:55 Completed Lipase Stat Lab 06/26/25 07:55 Completed Urinalysis and Microscopic Stat Lab 06/26/25 08:30 Completed Urine , HCG Qual. Stat Lab 06/26/25 08:30 Completed Medical Decision Narrative: Patient is a 25-year-old female with no significant past medical history who presented to the emergency department with abdominal pain and nausea. On arrival, patient was hemodynamically stable with unremarkable vital signs. Differential includes but not limited to: Gastroenteritis, pancreatitis, UTI, pyelonephritis, nephrolithiasis, diverticulitis, amongst others. Patient was given Bentyl, Toradol and Zofran for symptom control. Patient's labs were reviewed and interpreted by myself: CBC showed mild leukocytosis of 11, CMP was unremarkable. Lipase normal. UA showed no evidence of infection. CT scan of the abdomen showed no acute pathology. Patient reported improvement of her symptoms. At this time, patient was discharged home in stable condition, return precautions were discussed. Patient was sent with El as well as [facility]. Critical Care Critical Care Time Critical Care Time: No
[2025-06-26 08:54] LABS: Bilirubin,Urine Negative (Negative); Color,Urine YELLOW (Yellow); Glucose,Urine (UA) Negative (Negative); Ketones,Urine Negative (Negative); Leukocyte Esterase,Urine Negative (Negative); PH,Urine 6.0 (5.0-8.5); Protein,Urine Negative (Negative); Specific Gravity, Urine 1.025 (1.005-1.030); Urobilinogen,Urine 0.2 EU/dl (0.2)
[2025-06-26 08:56] LABS: Urine Pregnancy, HCG Qual. Negative (Negative)
[2025-06-26] MEDS: ONDANSETRON 4MG/2ML VIAL 4 MG IV (08:57)
[2025-06-26] MEDS: KETOROLAC 30MG/ML VIAL 30 MG IV (08:57)
[2025-06-26 09:05] LABS: HCG Qualitative, Serum Negative (Negative)
[2025-06-26 09:07] LABS: Bacteria,Urine 1+ /lpf
[2025-06-26] MEDS: IOPAMIDOL-370 (76%);100ML BOTTLE 75 ML IV (09:15)
[2025-06-26] MEDS: SODIUM CHLORIDE 0.9% 10ML SYR (RAD ONLY) 10 ML IV (09:15)
== END 2025-06-26 11:46 | disposition home or self-care (01) ==
PROVIDERS: Emergency Provider Student in an Organized Health Care Education/Training Program; PCP Physician Assistant
DX: R10.32 Left lower quadrant pain (principal); R10.A2 Flank pain, left side; K52.9 Noninfective gastroenteritis and colitis, unspecified; F17.290 Nicotine dependence, other tobacco product, uncomplicated
CPT/HCPCS: 74177; 80053; 81001; 81025; 83605; 83690; 84703; 85025; 96374; 96375; 99285; J1885; J2405; Q9967